=== PATIENT | female | born 2000 | race African-American/Black ===

== ENCOUNTER 2018-12-25 15:16 | Outpatient (CLI) | payer OTHER ==
--- NOTE | 2018-12-26 08:58 | Ultrasound Report ---
Reason: SOFT TISSUE MASS Procedure Date: 12/25/2018 Accession Number: [id number] / [id number] Procedure: US - Axilla CPT Code: FULL RESULT: EXAM: RIGHT UPPER EXTREMITY ULTRASOUND - LIMITED EXAM DATE: 12/25/2018 04:30 PM. CLINICAL HISTORY: Soft tissue mass. COMPARISON: None. TECHNIQUE: Real-time scanning was performed with static images obtained. FINDINGS: No mass, bulky adenopathy or collections are identified. In the palpable region in the right axilla, there are multiple morphologically normal-appearing lymph nodes identified. The largest of these nodes measures 1.9 x 0.2 x 0.8 cm. IMPRESSION: 1. No concerning mass, bulky adenopathy or collections in the right axilla. 2. Multiple palpable morphologically normal right axillary nodes measuring up to 1.9 x 0.2 x 0.8 cm noted. [facility]
== END 2018-12-25 15:17 | disposition home or self-care (01) ==
LOC: DI 15:16
PROVIDERS: ATTEND Family Medicine
DX: D49.2 Neoplasm of unspecified behavior of bone, soft tissue, and skin (principal)
CPT/HCPCS: 71046; 76882

== ENCOUNTER 2018-12-25 16:25 | Outpatient (CLI) | payer OTHER ==
--- NOTE | 2018-12-26 05:48 | XRAY Report ---
Reason: BONE SOFT TISSUE SKIN NEOPLASM UNSPEC BEHAVIOR Procedure Date: 12/25/2018 Accession Number: [id number] / [id number] Procedure: XR - Chest 2 View X-Ray CPT Code: 88778 FULL RESULT: EXAM: CHEST RADIOGRAPHY EXAM DATE: 12/25/2018 04:26 PM. CLINICAL HISTORY: BONE SOFT TISSUE SKIN NEOPLASM UNSPEC BEHAVIOR. COMPARISON: None. TECHNIQUE: 2 views. FINDINGS: Lungs/Pleura: No focal opacities evident. No pleural effusion. No pneumothorax. Normal volumes. Mediastinum: Heart and mediastinal contours are unremarkable. Other: None. IMPRESSION: Normal 2-view chest radiography. [facility]
== END 2018-12-25 16:26 | disposition home or self-care (01) ==
LOC: DI 16:25
PROVIDERS: ATTEND Family Medicine
DX: D49.2 Neoplasm of unspecified behavior of bone, soft tissue, and skin (principal)
CPT/HCPCS: 71046

== ENCOUNTER 2019-12-27 07:00 | Outpatient (CLI) | payer OTHER | END 2019-12-27 23:59 | disposition home or self-care (01) | LOC: LAB.WCP 07:00 | PROVIDERS: ATTEND Obstetrics & Gynecology | DX: O03.9 Complete or unspecified spontaneous abortion without complication (principal) | CPT/HCPCS: 36415; 84702 ==

== ENCOUNTER 2019-12-27 08:00 | Outpatient (CLI) | payer OTHER ==
[2019-12-28 19:13] LABS: TRICHOMONAS VAGINALIS DNA NEGATIVE (NEGATIVE)
== END 2019-12-27 23:59 | disposition home or self-care (01) ==
LOC: LAB.WCP 08:00
PROVIDERS: ATTEND Obstetrics & Gynecology
DX: Z11.3 Encounter for screening for infections with a predominantly sexual mode of transmission (principal); O03.9 Complete or unspecified spontaneous abortion without complication
CPT/HCPCS: 36415; 84702; 87491; 87591; 87661

== ENCOUNTER 2020-01-06 16:40 | Emergency (ER) | payer OTHER ==
[2020-01-06] MEDS ORDERED: LIDOCAINE 1%-EPI 1:100000 20 ML MDV SUBQ STA (16:56)
[2020-01-06] MEDS ORDERED: BACITRACIN ZINC OINT 1 PACKET TOP STA (17:20)
--- NOTE | 2020-01-06 17:40 | ED Physician Documentation ---
History of Present Illness - Stated complaint Stated Complaint: RT FOREARM LACS - Chief complaint Chief Complaint: Laceration - History obtained from History obtained from: Patient - History of Present Illness Timing: Last night Pain level max: 3 Pain level now: 2 - Additonal information Additional information: 19-year-old female presents to the emergency department stating that she was working on her car last night when she developed several lacerations to the right arm. She bandaged to these, but they will not stay closed. Tetanus is up-to-date. Nothing makes it better or worse. Review of Systems Constitutional: denies: Fever, Chills Nose: denies: Rhinorrhea / runny nose, Congestion Respiratory: denies: Cough GI: denies: Nausea, Vomiting : denies: Now EGA PD PAST MEDICAL HISTORY - Past Medical History Past Medical History: Yes Psych: Anxiety - Past Surgical History Past Surgical History: No - Present Medications Home Medications: Ambulatory Orders Medication Instructions Recorded Confirmed No Known Home Medications 10/18/13 11/19/13 Cyclobenzaprine [Flexeril] 10 mg PO TID PRN #20 tablet 07/16/17 Meloxicam [Mobic] 7.5 mg PO BID PRN #20 tablet 07/16/17 - Allergies Allergies/Adverse Reactions: Allergies Allergy/AdvReac Type Severity Reaction Status Date / Time No Known Drug Allergies Allergy Verified 01/06/20 16:45 - Social History Does the pt smoke?: No Smoking Status: Never smoker Does the pt drink ETOH?: Yes Does the pt have substance abuse?: No - Immunizations Immunizations are current?: No PD ED PE NORMAL - Vitals Vital signs reviewed: Yes - General General: Alert and oriented X 3, No acute distress - Derm Derm: Warm and dry, No rash - Neuro Neuro: Alert and oriented X 3 PD ED PE EXPANDED - Extremities ART UE/Hands Visual: 1 - laceration (5cm, linear, NVI) 2 - laceration (2cm, linear, NVI) Results - Vitals Vitals: Vital Signs - 24 hr 01/06/20 01/06/20 01/06/20 16:45 17:38 17:48 Temperature 36.5 C 37.1 C 37.1 C Heart Rate 88 75 76 Respiratory 14 16 Rate Blood Pressure 123/71 113/64 O2 Saturation 98 100 97 Oxygen O2 Source Room air Procedures - Laceration (location) R forearm Length in cm: 5 Wound type: Linear, Into subcut fat, Clean Anesthesia: Lidocaine 1% with epi Wound Preparation: Irrigated copiously NS, Wound explored, To the base. No: FB identified Skin layer closure: [place] Other: Patient tolerated well, No complications, Neurovascular intact, Dressing applied, Tetanus UTD Complexity: Simple R forearm 2 Length in cm: 2 Wound type: Linear, Into subcut fat, Clean Neurovascular status: Sensory intact, Motor intact Anesthesia: Lidocaine 1% with epi Wound Preparation: Irrigated copiously NS, Wound explored, To the base. No: FB identified, FB removed Skin layer closure: [place] Other: Patient tolerated well, No complications, Neurovascular intact, Dressing applied, Tetanus UTD Complexity: Simple PD MEDICAL DECISION MAKING - ED course Complexity details: considered differential, d/w patient ED course: Lacerations repaired with ina. Bacitracin applied and a bandage was placed. Tetanus is up-to-date. Warnings of infection and instructions on wound care given at bedside. Also counseled on how to minimize scarring. Patient counseled regarding signs and symptoms for which I believe and urgent re-evaluation would be necessary. Patient with good understanding of and agreement to plan and is comfortable going home at this time This document was made in part using voice recognition software. While efforts are made to proofread this document, sound alike and grammatical errors may occur. Departure - Departure Disposition: 01 Home, Self Care Clinical Impression: Forearm laceration Qualifiers: Encounter type: initial encounter Laterality: right Qualified Code(s): S51.811A - Laceration without foreign body of right forearm, initial encounter Condition: Good Instructions: ED Laceration Ext Sutr Stap Tape Follow-Up: Christianne Nix DO [Primary Care Provider] - (in 10-14 days for staple removal) Comments: Return if you worsen. Keep the wound clean. Return if you notice redness swelling or drainage from the wound. Follow-up with your doctor in approximately 10 to 14 days for staple removal. Discharge Date/Time: 01/06/20 17:45
[2020-01-06 17:49] VITALS: BP 113/64
== END 2020-01-06 17:45 | disposition home or self-care (01) ==
LOC: ED 16:40
DX: S51.811A Laceration without foreign body of right forearm, initial encounter (principal); W26.9XXA Contact with unspecified sharp object(s), initial encounter; Y93.89 Activity, other specified
CPT/HCPCS: 12002; 99281; 99282; A9270

== ENCOUNTER 2020-07-24 14:17 | Emergency (ER) | payer OTHER ==
[2020-07-24] MEDS ORDERED: LIDOCAINE 2% 50 ML MDV SUBQ STA (16:09)
[2020-07-24] MEDS ORDERED: TETANUS/DIPHTHERIA/PERTUSSIS 0.5 ML SYRINGE IM ONE (16:10)
--- NOTE | 2020-07-24 16:13 | ED Physician Documentation ---
History of Present Illness - Stated complaint Stated Complaint: FINGER PUNCTURE - Chief complaint Chief Complaint: Ext Problem - History obtained from History obtained from: Patient - History of Present Illness Timing: How many days ago (5) Pain level max: 6 Pain level now: 4 - Additonal information Additional information: R index finger pain, swelling. Worse with movement and better with rest. Unknown last Td. no known injury. Has been working on her car lately. 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 HEENT: None Psych: Anxiety Musculoskeletal: None Derm: None - Past Surgical History Past Surgical History: No - Present Medications Home Medications: Ambulatory Orders Medication Instructions Recorded Confirmed Cyclobenzaprine [Flexeril] 10 mg PO TID PRN #20 tablet 07/16/17 Meloxicam [Mobic] 7.5 mg PO BID PRN #20 tablet 07/16/17 HYDROcod/ACETAM 5/325 [Cobb 5/325] 1 - 2 ea PO Q6H PRN #14 tablet 07/24/20 clindamycin HCL [Cleocin HCl] 300 mg PO Q6H #28 capsule 07/24/20 - Allergies Allergies/Adverse Reactions: Allergies Allergy/AdvReac Type Severity Reaction Status Date / Time Sulfa (Sulfonamide Allergy Unknown Verified 07/24/20 14:22 Antibiotics) - Social History Does the pt smoke?: No Smoking Status: Never smoker Does the pt drink ETOH?: Yes Does the pt have substance abuse?: No - Immunizations Immunizations are current?: No PD ED PE NORMAL - Vitals Vital signs reviewed: Yes - General General: Alert and oriented X 3, No acute distress - HEENT HEENT: Moist mucous membranes - Derm Derm: Warm and dry - Extremities Extremities: Other (R index finger - swelling to the skin just proximal to the nail fold. NVI. no drainage. o/w normal finger and hand exam.) - Neuro Neuro: Alert and oriented X 3 Results - Vitals Vitals: Vital Signs - 24 hr 07/24/20 07/24/20 14:22 17:12 Temperature 36.5 C Heart Rate 84 71 Respiratory 16 17 Rate Blood Pressure 136/73 H 131/73 H O2 Saturation 98 99 Oxygen O2 Source Room air Procedures - Abscess I&D (location) paronychia Preparation: Alcohol, Lidocaine 2 % Incision: Incised with scalpel (blunt end under nail fold), Purulent drainage Other: Pt tolerated well, Dressing applied, Antibiotic prescribed PD MEDICAL DECISION MAKING - ED course Complexity details: considered differential, d/w patient ED course: Patient with a paronychia. No evidence of deep space infection in the hand or finger. No evidence of toxic tenosynovitis. We will place on antibiotics for home. It was drained here. Patient counseled regarding signs and symptoms for which I believe and urgent re-evaluation would be necessary. Patient with good understanding of and agreement to plan and is comfortable going home at this time This document was made in part using voice recognition software. While efforts are made to proofread this document, sound alike and grammatical errors may occur. Tdap given Departure - Departure Disposition: 01 Home, Self Care Clinical Impression: Paronychia Condition: Good Instructions: ED Fingernail Infec Follow-Up: Christianne Nix DO [Primary Care Provider] - Within 1 week (if not better) Prescriptions: clindamycin HCL [Cleocin HCl] 300 mg PO Q6H #28 capsule HYDROcod/ACETAM 5/325 [Cobb 5/325] 1 - 2 ea PO Q6H PRN #14 tablet PRN Reason: Pain Comments: Take all antibiotics until gone. Return if you worsen. Follow-up with your doctor in approximately 1 week for a wound check. Return sooner if you are not doing better. You should soak the area 2-3 times daily in warm water as well. This will help to encourage drainage. Do not drink alcohol or drive while on narcotic pain medicine. Note that many narcotic pain relievers also contain tylenol/acetaminophen. Please ensure that your total dose of acetaminophen from all sources does not exceed 3 grams (3000mg) per day. You may constipated on this medication, take a stool softener such as "Colace" twice a day while you are on it. Also recommend a [id number]-bbf-hufokbi laxative such as senna or MiraLAX any day that you do not have a bowel movement. If you received narcotic pain medication in the emergency department, do not drive or operate machinery for the next 24 hours. Discharge Date/Time: 07/24/20 17:14
[2020-07-24] MEDS ORDERED: LIDOCAINE-MPF 2% 5 ML VIAL SUBQ STA (16:16)
[2020-07-24] MEDS ORDERED: CLINDAMYCIN 150 MG CAPSULE PO STA (16:54)
[2020-07-24] MEDS ORDERED: BACITRACIN ZINC OINT 1 PACKET TOP STA (16:54)
[2020-07-24 17:13] VITALS: BP 131/73
== END 2020-07-24 17:14 | disposition home or self-care (01) ==
LOC: ED 14:17
DX: L03.011 Cellulitis of right finger (principal); Z23 Encounter for immunization
CPT/HCPCS: 10060; 90471; 90715; 99283; 99284; A9270; 26010

== ENCOUNTER 2020-09-30 | Emergency (ER) | payer OTHER | END 2020-09-30 14:12 | disposition left against medical advice (07) | DX: Z53.21 Procedure and treatment not carried out due to patient leaving prior to being seen by health care provider (principal) ==

== ENCOUNTER 2020-10-07 09:54 | Emergency (ER) | payer OTHER ==
--- NOTE | 2020-10-07 11:08 | ED Physician Documentation ---
History of Present Illness - Stated complaint Stated Complaint: BI LAT HAND INJ - Chief complaint Chief Complaint: Trauma Ext - History obtained from History obtained from: Patient - Additonal information Additional information: Patient presents emergency department chief complaint of bilateral, but mainly left, hand and wrist pain after falling on outstretched hands on a carpeted floor about 1 week ago. She states that she initially had pain, especially in the left side, but felt that it would get better on its own. However, the patient had noted persistent swelling and pain, mainly of the ulnar aspect of the left wrist and left hand dorsum over the fifth metacarpal bone. She denies any pain anywhere else in the left upper extremity. The patient also has a little pain in the right hand dorsum over the fourth and fifth MCP joint but this is much better and without swelling, and the patient can move her fingers. Review of Systems Ten Systems: 10 systems reviewed and negative Constitutional: reports: Reviewed and negative Eyes: reports: Reviewed and negative Ears: reports: Reviewed and negative Nose: reports: Reviewed and negative Throat: reports: Reviewed and negative Cardiac: reports: Reviewed and negative Respiratory: reports: Reviewed and negative GI: reports: Reviewed and negative : reports: Reviewed and negative Skin: reports: Reviewed and negative Musculoskeletal: reports: Extremity pain, Joint pain Neurologic: reports: Reviewed and negative Psychiatric: reports: Reviewed and negative Endocrine: reports: Reviewed and negative Immunocompromised: reports: Reviewed and negative PD PAST MEDICAL HISTORY - Past Medical History Past Medical History: Yes Cardiovascular: None Respiratory: None Neuro: None Endocrine/Autoimmune: None GI: None 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 : None HEENT: None Psych: Depression, Anxiety Musculoskeletal: None Derm: None - Past Surgical History Past Surgical History: No - Present Medications Home Medications: Ambulatory Orders Medication Instructions Recorded Confirmed ARIPiprazole [Abilify Mycite] 10 mg PO DAILY 10/07/20 10/07/20 Fluoxetine HCl [Prozac] 40 mg PO DAILY 10/07/20 10/07/20 - Allergies Allergies/Adverse Reactions: Allergies Allergy/AdvReac Type Severity Reaction Status Date / Time Sulfa (Sulfonamide Allergy Unknown Verified 10/07/20 09:57 Antibiotics) - Social History Does the pt smoke?: No Smoking Status: Never smoker Does the pt drink ETOH?: Yes Does the pt have substance abuse?: No - Immunizations Immunizations are current?: Yes PD ED PE NORMAL - Vitals Vital signs reviewed: Yes - General General: Alert and oriented X 3, No acute distress - HEENT HEENT: Atraumatic, PERRL, EOMI, Moist mucous membranes - Neck Neck: Supple, no meningeal sign - Cardiac Cardiac: Strong equal pulses - Respiratory Respiratory: No respiratory distress - Derm Derm: Normal color, Warm and dry, No rash - Extremities Extremities: No deformity, Other (Mild edema left wrist and ulnar aspect of left hand. Tenderness over same area. Limited range of motion secondary to pain.) - Neuro Neuro: Alert and oriented X 3 - Psych Psych: Normal mood, Normal affect Results - Vitals Vitals: Oxygen O2 Source Room air - Rads (name of study) L wrist XR Radiology: Final report received, EMP read indepedently, See rad report (neg) L hand XR Radiology: Final report received, EMP read indepedently, See rad report (neg) PD MEDICAL DECISION MAKING - ED course Complexity details: reviewed results, re-evaluated patient, considered differential, d/w patient ED course: The patient was sent for x-rays of her left wrist and hand, which were unremarkable. She was placed in a Velcro splint of her left wrist. We have discussed home management of the symptoms, as well as the usual indications for return. Departure - Departure Disposition: 01 Home, Self Care Clinical Impression: Left wrist sprain Qualifiers: Encounter type: initial encounter Qualified Code(s): S63.502A - Unspecified sprain of left wrist, initial encounter Condition: Stable Instructions: ED Sprain Wrist Comments: Your x-rays look great. There is no evidence of a broken bone. You have most likely sprained the wrist and hand. This will heal on its own over time but can cause some pain and swelling in the meantime. You may use the Velcro wrist splint to help with discomfort in the meantime. Please also elevate and ice the wrist whenever you are able. Icing should be done for 20 to 30 minutes at a time, and then the ice pack should be removed to avoid tissue damage. You may use ibuprofen and Tylenol as needed for pain. Ibuprofen can be taken 600 mg every 6 hours or 800 mg every 8 hours, as needed. You may take Tylenol at the same time, with the adult dose being 650 mg every 4 hours. You are free to use the splint at your discretion, and may leave off using it whenever you are feeling better. Discharge Date/Time: 10/07/20 12:35
--- NOTE | 2020-10-07 11:51 | XRAY Report ---
PROCEDURE: Wrist 3 View LT INDICATIONS: FOOSH, pain, swelling TECHNIQUE: views of the wrist were acquired. COMPARISON: None FINDINGS: Bones: No fractures or dislocations. No suspicious bony lesions. Soft tissues: No suspicious soft tissue calcifications. IMPRESSION: No fracture. No osseous lesion. If there are persistent symptoms or continued clinical concern for pa thology, then repeat plain film radiographs (7-10 days) or advanced imaging (CT, MR, bone scan) shoul d be considered for further evaluation. Reviewed by: Kenya Giraldo MD, PhD on 10/07/2020 11:49 AM [facility] Approved by: Kenya Giraldo MD, PhD on 10/07/2020 11:49 AM [facility] Station ID: [id number]
--- NOTE | 2020-10-07 11:54 | XRAY Report ---
PROCEDURE: Hand 3 View LT INDICATIONS: FOOSH, pain, swelling TECHNIQUE: 3 views of the hand acquired. COMPARISON: Concurrent study of the wrist. FINDINGS: Bones: No fractures or dislocations. No suspicious bony lesions. Soft tissues: No suspicious soft tissue calcifications. IMPRESSION: 1. No fracture or dislocation. Reviewed by: Fazal Martino MD on 10/07/2020 11:52 AM [facility] Approved by: Fazal Martino MD on 10/07/2020 11:52 AM [facility] Station ID: [id number]
[2020-10-07 12:35] VITALS: BP 108/63
== END 2020-10-07 12:35 | disposition home or self-care (01) ==
LOC: ED 09:54
DX: S63.502A Unspecified sprain of left wrist, initial encounter (principal); W18.09XA Striking against other object with subsequent fall, initial encounter; Y92.009 Unspecified place in unspecified non-institutional (private) residence as the place of occurrence of the external cause
CPT/HCPCS: 99284

== ENCOUNTER 2020-12-16 18:52 | Emergency (ER) | payer OTHER ==
[2020-12-16] MEDS ORDERED: LIDOCAINE MPF 2%-EPI 1:200000 20 ML VIAL SUBQ ONE (19:13)
[2020-12-16] MEDS ORDERED: IBUPROFEN 600 MG TABLET PO STA (19:13)
--- NOTE | 2020-12-16 19:46 | ED Physician Documentation ---
PD HPI UPPER EXT INJURY - Stated complaint Stated Complaint: RT ARM LAC - Chief complaint Chief Complaint: Laceration - History obtained from History obtained from: Patient - History of Present Illness Location: Right, Forearm Type of injury: Laceration (her car window broke and she was taking out the broken glass and some fell and cut her forearm. No numbness nor weakness.) Where injury occurred: Home Timing - onset: How many hours ago (1), Today Timing - details: Abrupt onset, Still present (bled initially but stopped with direct pressure. Laceration still open. 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 HEENT: None Psych: Depression, Anxiety Musculoskeletal: None Derm: None - Past Surgical History Past Surgical History: No - Present Medications Home Medications: Ambulatory Orders Medication Instructions Recorded Confirmed ARIPiprazole [Abilify Mycite] 10 mg PO DAILY 10/07/20 12/16/20 Fluoxetine HCl [Prozac] 40 mg PO DAILY 10/07/20 12/16/20 - Allergies Allergies/Adverse Reactions: Allergies Allergy/AdvReac Type Severity Reaction Status Date / Time Sulfa (Sulfonamide Allergy Unknown Verified 12/16/20 18:56 Antibiotics) - Social History Does the pt smoke?: No Smoking Status: Never smoker Does the pt drink ETOH?: Yes Does the pt have substance abuse?: No - Immunizations Immunizations are current?: Yes PD ED PE NORMAL - Vitals Vital signs reviewed: Yes - General General: Alert and oriented X 3, No acute distress, Well developed/nourished - Derm Derm: Normal color, Warm and dry - Extremities Extremities: No deformity, Other (laceration mid volar forearm about 3 cm long with edges gapped apart. No FB. Goes to fatty layer, but not deeper structures. Minimal bleeding now. ) - Neuro Neuro: Alert and oriented X 3, No motor deficit, No sensory deficit, Other (good pulses and cap refill distally.) Results - Vitals Vitals: Vital Signs - 24 hr 12/16/20 12/16/20 18:57 20:03 Temperature 37 C 36.8 C Heart Rate 106 H 103 H Respiratory 18 16 Rate Blood Pressure 170/106 H 142/86 H O2 Saturation 98 100 Oxygen O2 Source Room air Procedures - Laceration (location) right forearm volar Length in cm: 3 Wound type: Linear, Into subcut fat, Clean Neurovascular status: Sensory intact, Motor intact, Vascular intact Tendon involvement: Tendon intact Anesthesia: Lidocaine 1% with epi Wound preparation: Irrigated copiously NS, Wound explored, To the base. No: FB identified Skin layer closure: Nylon, Running, Size #-0 - enter number (4), Sutures - enter # (11) Other: Patient tolerated well, No complications, Neurovascular intact, Dressing applied, Tetanus UTD PD MEDICAL DECISION MAKING - ED course Complexity details: considered differential, d/w patient Departure - Departure Disposition: 01 Home, Self Care Clinical Impression: Forearm laceration Qualifiers: Encounter type: initial encounter Laterality: right Qualified Code(s): S51.811A - Laceration without foreign body of right forearm, initial encounter Condition: Stable Record reviewed to determine appropriate education?: Yes Instructions: ED Laceration Ext Sutr Stap Tape Follow-Up: Christianne Nix DO [Primary Care Provider] - Comments: Suture removal in 8-10 days. Discharge Date/Time: 12/16/20 20:05
[2020-12-16 20:05] VITALS: BP 142/86
== END 2020-12-16 20:05 | disposition home or self-care (01) ==
LOC: ED 18:52
DX: S51.811A Laceration without foreign body of right forearm, initial encounter (principal); W25.XXXA Contact with sharp glass, initial encounter; Y92.009 Unspecified place in unspecified non-institutional (private) residence as the place of occurrence of the external cause
CPT/HCPCS: 12002; 99282; A9270

== ENCOUNTER 2021-04-23 08:00 | Outpatient (CLI) | payer OTHER ==
[2021-04-23 11:53] LABS: HCG,QUALITATIVE BLOOD NEGATIVE
== END 2021-04-23 23:59 | disposition home or self-care (01) ==
LOC: LAB.WCP 08:00
PROVIDERS: ATTEND Family Medicine
DX: N91.2 Amenorrhea, unspecified (principal)
CPT/HCPCS: 36415; 84703

== ENCOUNTER 2021-05-13 10:58 | Emergency (ER) | payer OTHER ==
[2021-05-13 11:24] LABS: BASOPHILS % (AUTO) 0.7 %; EOSINOPHILS # (AUTO) 0.2 10^3/uL (0.0-0.7); EOSINOPHILS % (AUTO) 5.2 %; HCT - HEMATOCRIT 39.4 % (37.0-47.0); HGB - HEMOGLOBIN 13.1 g/dL (12.0-16.0); LYMPHOCYTES # (AUTO) 1.8 10^3/uL (1.5-3.5); LYMPHOCYTES % (AUTO) 45.3 %; MEAN CORPUSCULAR HEMOGLOBIN 30.2 pg (27.0-31.0); MEAN CORPUSCULAR HGB CONC 33.2 g/dL (32.0-36.0); MEAN CORPUSCULAR VOLUME 90.8 fL (81.0-99.0); MEAN PLATELET VOLUME 9.9 fL (7.9-10.8); MONOCYTES # (AUTO) 0.3 10^3/uL (0.0-1.0); MONOCYTES % (AUTO) 7.7 %; NEUTROPHILS # (AUTO) 1.7 10^3/uL (1.5-6.6); NEUTROPHILS % (AUTO) 41.1 %; PLT - PLATELET COUNT 264 10^3/uL (130-450); RED BLOOD COUNT 4.34 10^6/uL (4.20-5.40)
[2021-05-13 11:28] LABS: BILIRUBIN,URINE NEGATIVE (NEGATIVE); GLUCOSE, URINE (UA) NEGATIVE (NEGATIVE); KETONES,URINE (UA) NEGATIVE (NEGATIVE); LEUKOCYTE ESTERASE, URINE TRACE (NEGATIVE); NITRITE,URINE NEGATIVE (NEGATIVE); OCCULT BLOOD,URINE NEGATIVE (NEGATIVE); PROTEIN,URINE NEGATIVE (NEGATIVE); UROBILINOGEN,URINE 0.2 (NORMAL) E.U./dL (NORMAL)
[2021-05-13 11:34] LABS: CLARITY,URINE CLEAR (CLEAR); HCG UR QUAL NEGATIVE
[2021-05-13 11:35] LABS: BACTERIA,URINE Rare /HPF (None Seen); RBC,URINE None Seen /HPF (0-5); SQUAMOUS EPITHELIAL CELL,UR MOD Squamous (<= Few)
[2021-05-13] MEDS ORDERED: ONDANSETRON 4 MG/2 ML VIAL IVP STA (11:50)
[2021-05-13] MEDS ORDERED: SODIUM CHLORIDE 0.9% 1,000 ML IV STA (11:50)
--- NOTE | 2021-05-13 11:52 | ED Physician Documentation ---
History of Present Illness - Stated complaint Stated Complaint: ABN PX,VOMITTING - Chief complaint Chief Complaint: Abd Pain - Additonal information Additional information: 20-year-old female presents the emergency department for evaluation of 3 weeks nausea vomiting and diarrhea. Reports last menstrual period as April 02, 2021. She assumed that the vomiting and diarrhea was secondary to being though her home tests are negative and she is negative here in the ER. She is attempting to get and is requesting a serum test. She reports that she has typically 2-4 watery loose stools a day. No melena or hematochezia. She is persistently nauseated and vomits 2-3 times a day on average though not always. Nausea is not worse in the morning or in the evening with meals. She is having some left lower abdominal discomfort. There have been no fevers dysuria urgency or frequency. Denies any pertinent past surgical history. Takes no prescribed medications. She does smoke cannabis daily but reports that it improves the nausea and not worsens it. Denies tobacco or alcohol use. She is not vaccinated for COVID-19 Review of Systems Constitutional: denies: Fever, Chills Eyes: reports: Reviewed and negative Ears: reports: Reviewed and negative Nose: reports: Reviewed and negative Throat: reports: Reviewed and negative Cardiac: reports: Reviewed and negative Respiratory: reports: Reviewed and negative GI: reports: Abdominal Pain, Nausea, Vomiting, Diarrhea. 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 : None HEENT: None Psych: Depression, Anxiety Musculoskeletal: None Derm: None - Past Surgical History Past Surgical History: No - Present Medications Home Medications: Ambulatory Orders Medication Instructions Recorded Confirmed Duloxetine HCl [Cymbalta] 60 mg PO DAILY 05/13/21 05/13/21 Ondansetron Odt [Zofran] 4 mg TL Q6H PRN #20 tablet 05/13/21 Trazodone HCl 100 mg PO HS 05/13/21 05/13/21 - Allergies Allergies/Adverse Reactions: Allergies Allergy/AdvReac Type Severity Reaction Status Date / Time Sulfa (Sulfonamide Allergy Unknown Verified 05/13/21 11:06 Antibiotics) - Social History Does the pt smoke?: No Smoking Status: Never smoker Does the pt drink ETOH?: Yes Does the pt have substance abuse?: No - Immunizations Immunizations are current?: Yes PD ED PE NORMAL - General General: Alert and oriented X 3, No acute distress - HEENT HEENT: PERRL - Neck Neck: Supple, no meningeal sign - Cardiac Cardiac: RRR, No murmur - Respiratory Respiratory: Clear bilaterally - Abdomen Abdomen: Normal bowel sounds, Soft, Non distended. No: Non tender (Mild tenderness left lower quadrant without guarding or rebound. Negative Farmer's and negative McBurney's.) - Back Back: No CVA TTP - Derm Derm: Normal color, Warm and dry, No rash - Neuro Neuro: Alert and oriented X 3 Results - Vitals Vitals: Vital Signs - 24 hr 05/13/21 05/13/21 11:02 13:06 Temperature 36.2 C L Heart Rate 78 73 Respiratory 16 22 Rate Blood Pressure 122/75 145/108 H O2 Saturation 98 99 Oxygen O2 Source Room air - Labs Labs: Laboratory Tests 05/13/21 05/13/21 05/13/21 11:15 11:17 11:18 WBC 4.0 L RBC 4.34 Hgb 13.1 Hct 39.4 MCV 90.8 MCH 30.2 MCHC 33.2 RDW 13.0 Plt Count 264 MPV 9.9 Neut # (Auto) 1.7 Lymph # (Auto) 1.8 [place] # (Auto) 0.3 Eos # (Auto) 0.2 Baso # (Auto) 0.0 Absolute Nucleated RBC 0.00 Nucleated RBC % 0.0 Sodium Potassium Chloride Carbon Dioxide Anion Gap BUN Creatinine Estimated GFR (MDRD) Glucose Calcium Total Bilirubin AST ALT Alkaline Phosphatase Total Protein Albumin Globulin Albumin/Globulin Ratio Lipase HCG, Quant Urine Color YELLOW Urine Clarity CLEAR Urine pH 6.0 Ur Specific [place] 1.025 Urine Protein NEGATIVE Urine Glucose (UA) NEGATIVE Urine Ketones NEGATIVE Urine Occult Blood NEGATIVE Urine Nitrite NEGATIVE Urine Bilirubin NEGATIVE Urine Urobilinogen 0.2 (NORMAL) Ur Leukocyte Esterase TRACE H Urine RBC None Seen Urine WBC 6-10 H Ur Squamous Epith Cells MOD Squamous H Urine Bacteria Rare Ur Microscopic Review INDICATED Urine Culture Comments NOT INDICATED Urine HCG, Qual NEGATIVE NEGATIVE 05/13/21 05/13/21 11:18 11:18 WBC RBC Hgb Hct MCV MCH MCHC RDW Plt Count MPV Neut # (Auto) Lymph # (Auto) [place] # (Auto) Eos # (Auto) Baso # (Auto) Absolute Nucleated RBC Nucleated RBC % Sodium 141 Potassium 4.4 Chloride 106 Carbon Dioxide 25 Anion Gap 10.0 BUN 17 Creatinine 0.8 Estimated GFR (MDRD) 109 Glucose 94 Calcium 9.2 Total Bilirubin 1.2 H AST 23 ALT 26 Alkaline Phosphatase 38 L Total Protein 7.7 Albumin 4.5 Globulin 3.2 Albumin/Globulin Ratio 1.4 Lipase 38 HCG, Quant < 0.60 Urine Color Urine Clarity Urine pH Ur Specific [place] Urine Protein Urine Glucose (UA) Urine Ketones Urine Occult Blood Urine Nitrite Urine Bilirubin Urine Urobilinogen Ur Leukocyte Esterase Urine RBC Urine WBC Ur Squamous Epith Cells Urine Bacteria Ur Microscopic Review Urine Culture Comments Urine HCG, Qual - Rads (name of study) abd pelvis Radiology: Final report received (No acute intra-abdominal process noted.) PD MEDICAL DECISION MAKING - ED course Complexity details: reviewed results, d/w patient, d/w family ED course: 20-year-old female presents emergency department for evaluation of 3 to 4 weeks persistent nausea vomiting and diarrhea. She thought that she was however urine and serum hCG testing is negative. Given 3 weeks of diarrhea I ordered stool testing but patient was unable to produce a sample here in the emergency department. Screening labs were otherwise unremarkable. CT of the abdomen did not show any worrisome abnormalities. I encourage patient to continue close follow-up with primary care doctor. Given persistence in symptoms she would benefit likely from an EGD or colonoscopy. I will prescribe a limited amount of Zofran to help with the nausea. Emergent and worrisome return precautions were discussed. Departure - Departure Disposition: 01 Home, Self Care Clinical Impression: Nausea vomiting and diarrhea Condition: Stable Record reviewed to determine appropriate education?: Yes Instructions: ED Abdominal Pain Unkn Cause Follow-Up: Christianne Nix DO [Primary Care Provider] - Prescriptions: Ondansetron Odt [Zofran] 4 mg TL Q6H PRN #20 tablet PRN Reason: Nausea / Vomiting Comments: You are seen in the ER today for vomiting and diarrhea for about the last 3 to 4 weeks. Your screening labs are all essentially normal. You are not . Your serum blood testing shows that you are not . The CT of your abdomen did not show any worrisome findings. To help treat the nausea and vomiting I have prescribed some Zofran. To treat the diarrhea I would like you to start taking lactobacillus or eat a couple yogurt every day. This will help reestablish healthy bacteria in the intestines and reduce diarrhea. Would like you to schedule close follow-up with your primary care doctor. Persistent vomiting and diarrhea typically should be referred to a air bag stripper to ensure that there is no structural problems causing the persistent symptoms. If any point you develop fevers, have uncontrolled vomiting despite the Zofran, have black or bloody stools then please return immediately to the ER for a second look.
[2021-05-13 11:56] LABS: ALBUMIN 4.5 g/dL (3.2-5.5); ALBUMIN/GLOBULIN RATIO 1.4 (1.0-2.2); BILIRUBIN,TOTAL 1.2 mg/dL (0.2-1.0); CALCIUM 9.2 mg/dL (8.5-10.3); CREATININE 0.8 mg/dL (0.4-1.0); POTASSIUM 4.4 mmol/L (3.5-5.0); TOTAL PROTEIN 7.7 g/dL (6.7-8.2)
[2021-05-13 12:15] LABS: HCG UR QUAL NEGATIVE
[2021-05-13] MEDS ORDERED: IOPAMIDOL-300 100 ML VIAL ONE (13:00)
--- NOTE | 2021-05-13 13:09 | CT Report ---
PROCEDURE: Abdomen/Pelvis W INDICATIONS: n/v/d X 3 weeks CONTRAST: IV CONTRAST: Isovue 300 ml: 100 PO CONTRAST: *NO PO CONTRAST TECHNIQUE: After the administration of contrast, 5 mm thick sections acquired from the diaphragms to the sym physis. 5 mm thick coronal and sagittal reformats were acquired. For radiation dose reduction, the following was used: automated exposure control, adjustment of mA and/or kV according to patient size . COMPARISON: None. FINDINGS: Image quality: Excellent. ABDOMEN: Lung bases: Lung bases are clear. Heart size is normal. Solid organs: Liver and spleen are normal in size and enhancement. Gallbladder unremarkable Biliar y system is non dilated. Pancreas enhances normally. No adrenal nodules. Kidneys demonstrate shaw l size and enhancement, without hydronephrosis. Peritoneum and bowel: Bowel loops demonstrate normal wall thickness and caliber. No free fluid or a ir. Normal appendix identified. Nodes and vessels: No retroperitoneal or mesenteric adenopathy by size criteria. Aorta and inferior vena cava are normal in size. Miscellaneous: No ventral hernias. PELVIS: Genitourinary: Bladder wall thickness is normal. Miscellaneous: No inguinal hernias or adenopathy. Bones: No suspicious bony lesions. No vertebral body compression fractures. IMPRESSION: Unremarkable CT abdomen and pelvis. No evidence of renal calculi, obstructive uropathy or hydronephrosis. Reviewed by: Tee Cho MD on 05/13/2021 12:08 PM EDDA Approved by: Tee Cho MD on 05/13/2021 12:08 PM AKEDDIE Station ID: [id number]
[2021-05-13 13:10] VITALS: BP 145/108
[2021-05-13] MEDS ORDERED: IOPAMIDOL-300 100 ML VIAL IVP ONE (19:07)
== END 2021-05-13 14:34 | disposition home or self-care (01) ==
LOC: ED 10:58
DX: R11.2 Nausea with vomiting, unspecified (principal); R19.7 Diarrhea, unspecified; Z20.822 Contact with and (suspected) exposure to COVID-19
CPT/HCPCS: 36415; 74177; 80053; 81001; 81025; 83690; 84702; 85025; 87635; 96374; 99284; Q9967; 81003; 87086

== ENCOUNTER 2021-07-15 08:00 | Outpatient (CLI) | payer OTHER ==
[2021-07-15 21:07] LABS: CHLAMYDIA TRACHOMATIS DNA NEGATIVE (NEGATIVE); NEISSERIA GONORRHOEAE DNA NEGATIVE (NEGATIVE); TRICHOMONAS VAGINALIS DNA NEGATIVE (NEGATIVE)
[2021-07-17 12:06] LABS: HIV AG/AB 4TH GEN NON-REACTIVE (NON-REACTIVE)
== END 2021-07-15 23:59 | disposition home or self-care (01) ==
LOC: LAB.WCP 08:00
PROVIDERS: ATTEND Family Medicine
DX: Z11.3 Encounter for screening for infections with a predominantly sexual mode of transmission (principal)
CPT/HCPCS: 86592; 87389; 87491; 87591; 87661

== ENCOUNTER 2021-08-12 21:22 | Emergency (ER) | payer OTHER ==
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
[2021-08-12] MEDS ORDERED: oxyCODONE 5 MG TABLET PO STA (21:56)
--- NOTE | 2021-08-12 22:27 | XRAY Report ---
PROCEDURE: Forearm BILAT INDICATIONS: BL forearm swelling s/p fall TECHNIQUE: 2 views of the forearm were acquired. COMPARISON: None. FINDINGS: Bones: No fractures or dislocations. No periosteal reaction. No suspicious bony lesions. Soft tissues: Soft tissue swelling at the dorsal aspect of the forearms bilaterally, right greater th an left. No suspicious soft tissue calcifications or masses. Radiopaque foreign body. IMPRESSION: No acute osseous abnormality. Forearm soft tissue swelling bilaterally. Reviewed by: Edgardo Trevino MD on 08/12/2021 10:25 PM PST Approved by: Edgardo Trevino MD on 08/12/2021 10:25 PM PST Station ID: [id number]
[2021-08-12 22:51] VITALS: BP 138/88
== END 2021-08-12 22:50 | disposition home or self-care (01) ==
LOC: ED 21:22
DX: R22.33 Localized swelling, mass and lump, upper limb, bilateral (principal); M79.632 Pain in left forearm; M79.631 Pain in right forearm; W19.XXXA Unspecified fall, initial encounter
CPT/HCPCS: 73090; 99282; 99283; A9270

== ENCOUNTER 2021-09-09 16:22 | Emergency (ER) | payer MEDICARE, OTHER ==
[2021-09-09 16:31] VITALS: BP 169/99
--- NOTE | 2021-09-09 18:54 | ED Physician Documentation ---
History of Present Illness - Stated complaint Stated Complaint: LUMPS UNDER ARM/PX - Chief complaint Chief Complaint: Wound - History obtained from History obtained from: Patient - History of Present Illness Timing: Today Pain level max: 0 Pain level now: 0 - Additonal information Additional information: Patient is a 21-year-old female who presents to the emergency department stating that she has felt lumps on her chest and in her axilla over the past several weeks. She states she ran out of her Risperdal about a month ago. She states that there is a prescription but she does not know where it is. She denies any suicidal or homicidal ideation. No fevers. No chills. Nothing makes it better or worse. No drainage. 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 : None HEENT: None Psych: Depression, Anxiety Musculoskeletal: None Derm: None - Past Surgical History Past Surgical History: No - Present Medications Home Medications: Ambulatory Orders Medication Instructions Recorded Confirmed Duloxetine HCl [Cymbalta] 60 mg PO DAILY 05/13/21 08/12/21 Ondansetron Odt [Zofran] 4 mg TL Q6H PRN #20 tablet 05/13/21 Trazodone HCl 100 mg PO HS 05/13/21 08/12/21 risperiDONE [Risperdal] 2 mg PO DAILY 08/12/21 08/12/21 - Allergies Allergies/Adverse Reactions: Allergies Allergy/AdvReac Type Severity Reaction Status Date / Time Sulfa (Sulfonamide Allergy Unknown Verified 09/09/21 16:27 Antibiotics) - Social History Does the pt smoke?: No Smoking Status: Never smoker Does the pt drink ETOH?: Yes Does the pt have substance abuse?: No - Immunizations Immunizations are current?: Yes PD ED PE NORMAL - Vitals Vital signs reviewed: Yes - General General: Alert and oriented X 3 - HEENT HEENT: PERRL, Moist mucous membranes - Neck Neck: Supple, no meningeal sign, No adenopathy (No palpable lymphadenopathy in the axilla or across the chest wall. No cervical lymphadenopathy.) - Cardiac Cardiac: RRR, Strong equal pulses - Respiratory Respiratory: No respiratory distress, Clear bilaterally - Abdomen Abdomen: Soft, Non tender, Non distended - Derm Derm: Warm and dry - Neuro Neuro: Alert and oriented X 3 - Psych Psych: Normal mood, Normal affect Results - Vitals Vitals: Vital Signs - 24 hr 09/09/21 16:27 Temperature 37.0 C Heart Rate 110 H Respiratory 20 Rate Blood Pressure 169/99 H O2 Saturation 99 Oxygen O2 Source Room air PD MEDICAL DECISION MAKING - ED course Complexity details: considered differential, d/w patient ED course: Patient is palpating areas where the lymph nodes would be. I do not feel any significant lymphadenopathy in this patient. There are no abscesses. There are no signs of infection. Recommend that she restart her Risperdal. It does appear that her prescriptions are sent to [facility] in [place]. She will check with them tomorrow regarding her medication. She does not want a new prescription or a dose tonight. Patient counseled regarding signs and symptoms for which I believe and urgent re-evaluation would be necessary. Patient with good understanding of and agreement to plan and is comfortable going home at this time This document was made in part using voice recognition software. While efforts are made to proofread this document, sound alike and grammatical errors may occur. Departure - Departure Disposition: 01 Home, Self Care Clinical Impression: Has run out of medications, Lymphadenopathy Condition: Good Instructions: Lymphadenopathy Follow-Up: Christianne Nix DO [Primary Care Provider] - Within 1 week Comments: Your prescriptions have been sent recently to [facility]. You can follow-up with [facility] in [place] to discuss where your medications are. You appear to have medication waiting for you. Please follow-up with your doctor in 1 week for repeat evaluation. You have declined blood work here today. Return if you worsen Discharge Date/Time: 09/09/21 19:08
== END 2021-09-09 19:08 | disposition home or self-care (01) ==
LOC: ED 16:22
DX: F41.9 Anxiety disorder, unspecified (principal); T43.596A Underdosing of other antipsychotics and neuroleptics, initial encounter; Z91.138 Patient's unintentional underdosing of medication regimen for other reason; N64.89 Other specified disorders of breast; R59.0 Localized enlarged lymph nodes; I10 Essential (primary) hypertension
CPT/HCPCS: 99281

== ENCOUNTER 2021-09-09 23:13 | Emergency (ER) | payer MEDICARE ==
[2021-09-10] MEDS ORDERED: risperiDONE 1 MG TABLET PO STA (00:39)
--- NOTE | 2021-09-10 01:54 | ED Physician Documentation ---
History of Present Illness - Stated complaint Stated Complaint: DIFF BREATHING - Chief complaint Chief Complaint: Resp - History obtained from History obtained from: Patient - History of Present Illness Timing: How many weeks ago (several) - Additonal information Additional information: 21-year-old female off of her medications comes to the emergency department with acute anxiety feeling that she is having difficulty breathing. She is anxious about her breasts. She feels a nipples have changed in their character with the skin surrounding them. She is vague about the this history. She feels that she has a lymph node in the right axilla that is painful. She is worried about breast cancer. She has found some tiny dots in her skin that pop up here and there. She admits to using cocaine on her birthday and indicates that she did not want blood drawn in the emergency department earlier in the day because of this. She usually takes risperdal 2 mg nightly. She has not been taking this medication. Review of Systems Constitutional: denies: Fever Ears: denies: Ear pain Nose: denies: Congestion Throat: denies: Sore throat Cardiac: denies: Chest pain / pressure, Palpitations, Pedal edema, Calf pain Respiratory: reports: Dyspnea. 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 : None HEENT: None Psych: Depression, Anxiety, Bipolar disorder Musculoskeletal: None Derm: None - Past Surgical History Past Surgical History: No - Present Medications Home Medications: Ambulatory Orders Medication Instructions Recorded Confirmed Duloxetine HCl [Cymbalta] 60 mg PO DAILY 05/13/21 09/09/21 Trazodone HCl 100 mg PO HS 05/13/21 09/09/21 risperiDONE [Risperdal] 2 mg PO DAILY 08/12/21 09/09/21 risperiDONE [Risperdal] 2 mg PO DAILY #20 tablet 09/10/21 - Allergies Allergies/Adverse Reactions: Allergies Allergy/AdvReac Type Severity Reaction Status Date / Time Sulfa (Sulfonamide Allergy Unknown Verified 09/09/21 23:16 Antibiotics) - Social History Does the pt smoke?: No Smoking Status: Never smoker Does the pt drink ETOH?: Yes Does the pt have substance abuse?: Yes Substance Use and Type: Marijuana, Cocaine/Crack - Immunizations Immunizations are current?: Yes PD ED PE NORMAL - Vitals Vital signs reviewed: Yes (tachy and tachypneic and hypertensive) - General General: Alert and oriented X 3, Well developed/nourished, Other (acutely anxious 21 y/o female with akesthesia) - HEENT HEENT: Atraumatic, PERRL, EOMI - Neck Neck: Supple, no meningeal sign, No bony TTP - Cardiac Cardiac: No murmur, Other (tachy to 110) - Respiratory Respiratory: Clear bilaterally, Other (tachyneic at rest. Breast exam is unremarkable. I am not able to differentiate an abnormality. ) - Abdomen Abdomen: Soft, Non tender - Back Back: No CVA TTP, No spinal TTP - Derm Derm: Normal color, Warm and dry, No rash - Extremities Extremities: No deformity, No edema - Neuro Neuro: Alert and oriented X 3, warp bleaching vat tender 2-12 intact, No motor deficit, No sensory deficit, Other (speech is pressured) Eye Opening: Spontaneous Motor: Obeys Commands Verbal: Oriented GCS Score: 15 - Psych Psych: Normal affect, Other (mood is anxious ) Results - Vitals Vitals: Vital Signs - 24 hr 09/09/21 09/09/21 09/10/21 23:17 23:31 00:08 Temperature 36.6 C Heart Rate 123 H 92 90 Respiratory 28 H 20 18 Rate Blood Pressure 188/123 H 155/122 H 149/105 H O2 Saturation 100 100 98 09/10/21 09/10/21 01:00 02:03 Temperature Heart Rate 94 100 Respiratory 20 17 Rate Blood Pressure 141/100 H 129/78 O2 Saturation 100 97 Oxygen O2 Source Room air PD MEDICAL DECISION MAKING - ED course Complexity details: reviewed old records, re-evaluated patient, considered differential, d/w patient ED course: 21 y/o female arrives hyperventilating with obvious distress about her breasts. She is off of her medication and it is difficult to get history from her. She is administered Respridal 2mg PO and has marked improvement. Following that I am able to examine the patient and I do not find abnormality. She indicates that she feels her nipples have changed but they don't seem as bad as they were. I have refilled her script for rispredone and referred her to surgery for breast exam with thought of Pagets disease for which I personally have little experience. Departure - Departure Disposition: 01 Home, Self Care Clinical Impression: Acute anxiety, Breast complaint Condition: Stable Instructions: Self Exam Breast, ED Stress React, ED Panic Attack Follow-Up: Christianne Nix DO [Primary Care Provider] [facility] Prescriptions: risperiDONE [Risperdal] 2 mg PO DAILY #20 tablet Discharge Date/Time: 09/10/21 02:10
[2021-09-10 02:03] VITALS: BP 129/78
== END 2021-09-10 02:10 | disposition home or self-care (01) ==
LOC: ED 23:13
DX: F41.9 Anxiety disorder, unspecified (principal); T43.596A Underdosing of other antipsychotics and neuroleptics, initial encounter; Z91.138 Patient's unintentional underdosing of medication regimen for other reason; N64.89 Other specified disorders of breast; R59.0 Localized enlarged lymph nodes; I10 Essential (primary) hypertension
CPT/HCPCS: 99281; 99282; 99283; A9270

== ENCOUNTER 2021-09-13 13:35 | Emergency (ER) | payer MEDICARE ==
--- NOTE | 2021-09-13 14:05 | ED Physician Documentation ---
History of Present Illness - Stated complaint Stated Complaint: BACK/CHEST PX - Chief complaint Chief Complaint: General - History obtained from History obtained from: Patient - Additonal information Additional information: 21-year-old woman with history of psychiatric issues presents with a complaint of a 2-month history of worsening painful lump in the right axilla associated with shortness of breath. She notes a 20 pound weight loss with night sweats and poor sleep despite taking trazodone. She admits to using cocaine on her birthday, 5 days ago but states she has not used any since. 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 : None HEENT: None Psych: Depression, Anxiety, Bipolar disorder Musculoskeletal: None Derm: None - Past Surgical History Past Surgical History: No - Present Medications Home Medications: Ambulatory Orders Medication Instructions Recorded Confirmed Duloxetine HCl [Cymbalta] 60 mg PO DAILY 05/13/21 09/13/21 Trazodone HCl 100 mg PO HS 05/13/21 09/13/21 risperiDONE [Risperdal] 2 mg PO DAILY 08/12/21 09/13/21 - Allergies Allergies/Adverse Reactions: Allergies Allergy/AdvReac Type Severity Reaction Status Date / Time Sulfa (Sulfonamide Allergy Unknown Verified 09/13/21 13:52 Antibiotics) - Social History Does the pt smoke?: No Smoking Status: Never smoker Does the pt drink ETOH?: Yes Does the pt have substance abuse?: Yes - Immunizations Immunizations are current?: Yes PD ED PE NORMAL - Vitals Vital signs reviewed: Yes - General General: Alert and oriented X 3, Other (Odd affect) - HEENT HEENT: PERRL, EOMI - Neck Neck: Supple, no meningeal sign, No bony TTP - Cardiac Cardiac: RRR, No murmur - Respiratory Respiratory: No respiratory distress, Clear bilaterally - Abdomen Abdomen: Non tender - Extremities Extremities: Other (Right axillary exam done with Antonina, female RN present and chaperoning, I do not appreciate any mass or adenopathy.) Results - Vitals Vitals: Vital Signs - 24 hr 09/13/21 09/13/21 13:48 13:55 Temperature 36.2 C L Heart Rate 111 H 94 Respiratory 20 Rate Blood Pressure 126/102 H O2 Saturation 97 Oxygen O2 Source Room air - Labs Labs: Laboratory Tests 09/13/21 09/13/21 09/13/21 14:07 14:09 14:09 WBC 3.7 L RBC 4.26 Hgb 13.1 Hct 40.0 MCV 93.9 MCH 30.8 MCHC 32.8 RDW 12.8 Plt Count 258 MPV 9.9 Neut # (Auto) 1.6 Lymph # (Auto) 1.6 Storey # (Auto) 0.4 Eos # (Auto) 0.1 Baso # (Auto) 0.1 Absolute Nucleated RBC 0.00 Nucleated RBC % 0.0 Sodium 134 L Potassium 4.5 Chloride 99 L Carbon Dioxide 29 Anion Gap 6.0 BUN 8 Creatinine 0.9 Estimated GFR (MDRD) 94 Glucose 85 Calcium 9.1 Total Bilirubin 1.0 AST 19 ALT 20 Alkaline Phosphatase 31 L Total Protein 7.5 Albumin 4.2 Globulin 3.3 Albumin/Globulin Ratio 1.3 TSH Urine Color YELLOW Urine Clarity CLEAR Urine pH 8.5 H Ur Specific [place] 1.020 Urine Protein NEGATIVE Urine Glucose (UA) NEGATIVE Urine Ketones NEGATIVE Urine Occult Blood NEGATIVE Urine Nitrite NEGATIVE Urine Bilirubin NEGATIVE Urine Urobilinogen 0.2 (NORMAL) Ur Leukocyte Esterase NEGATIVE Ur Microscopic Review NOT INDICATED Urine Culture Comments NOT INDICATED Urine HCG, Qual NEGATIVE Urine Opiates Screen NEGATIVE Ur Oxycodone Screen NEGATIVE Urine Methadone Screen NEGATIVE Ur Propoxyphene Screen NEGATIVE Ur Barbiturates Screen NEGATIVE Ur Tricyclics Screen NEGATIVE Ur Phencyclidine Scrn NEGATIVE Ur Amphetamine Screen NEGATIVE U Methamphetamines Scrn NEGATIVE U Benzodiazepines Scrn NEGATIVE Urine Cocaine Screen POSITIVE H U Cannabinoids Screen POSITIVE H Ethyl Alcohol < 5.0 09/13/21 14:09 WBC RBC Hgb Hct MCV MCH MCHC RDW Plt Count MPV Neut # (Auto) Lymph # (Auto) Storey # (Auto) Eos # (Auto) Baso # (Auto) Absolute Nucleated RBC Nucleated RBC % Sodium Potassium Chloride Carbon Dioxide Anion Gap BUN Creatinine Estimated GFR (MDRD) Glucose Calcium Total Bilirubin AST ALT Alkaline Phosphatase Total Protein Albumin Globulin Albumin/Globulin Ratio TSH 0.37 Urine Color Urine Clarity Urine pH Ur Specific [place] Urine Protein Urine Glucose (UA) Urine Ketones Urine Occult Blood Urine Nitrite Urine Bilirubin Urine Urobilinogen Ur Leukocyte Esterase Ur Microscopic Review Urine Culture Comments Urine HCG, Qual Urine Opiates Screen Ur Oxycodone Screen Urine Methadone Screen Ur Propoxyphene Screen Ur Barbiturates Screen Ur Tricyclics Screen Ur Phencyclidine Scrn Ur Amphetamine Screen U Methamphetamines Scrn U Benzodiazepines Scrn Urine Cocaine Screen U Cannabinoids Screen Ethyl Alcohol PD MEDICAL DECISION MAKING - ED course ED course: 21-year-old woman with odd affect and cocaine abuse presents with multiple complaints including hair loss and axillary pain. An ultrasound was done of the axilla with no abnormality which corresponds with physical exam showing no masses or abnormality there. Labs were generally unremarkable including thyroid function testing given her complaints. She has follow-up tomorrow which is appropriate. She is not taking her Risperdal, there is some sort of problem with the prescription on I offered to prescribe it to her but she declined. Departure - Departure Disposition: 01 Home, Self Care Clinical Impression: Breast pain, right, Hair loss, Cocaine abuse Condition: Good Record reviewed to determine appropriate education?: Yes Follow-Up: [facility] [Provider Group] Comments: No clear cause for your symptoms today. I would recommend you go back on Risperdal and avoid drug abuse. Follow-up with the surgeon tomorrow as scheduled and also reasonable to follow-up with a justowriter operator regarding the hair loss and the numbers on this form. Return for new or worsening symptoms.
[2021-09-13 14:13] LABS: MUDS CUTOFF CONCENTRATIONS CUTOFF CONC BELOW:
[2021-09-13 14:16] LABS: BASOPHILS # (AUTO) 0.1 10^3/uL (0.0-0.1); BASOPHILS % (AUTO) 1.3 %; EOSINOPHILS # (AUTO) 0.1 10^3/uL (0.0-0.7); EOSINOPHILS % (AUTO) 3.5 %; HGB - HEMOGLOBIN 13.1 g/dL (12.0-16.0); LYMPHOCYTES # (AUTO) 1.6 10^3/uL (1.5-3.5); LYMPHOCYTES % (AUTO) 42.2 %; MEAN CORPUSCULAR HEMOGLOBIN 30.8 pg (27.0-31.0); MEAN CORPUSCULAR HGB CONC 32.8 g/dL (32.0-36.0); MEAN CORPUSCULAR VOLUME 93.9 fL (81.0-99.0); MEAN PLATELET VOLUME 9.9 fL (7.9-10.8); MONOCYTES # (AUTO) 0.4 10^3/uL (0.0-1.0); MONOCYTES % (AUTO) 10.4 %; NEUTROPHILS # (AUTO) 1.6 10^3/uL (1.5-6.6); NEUTROPHILS % (AUTO) 42.3 %; PLT - PLATELET COUNT 258 10^3/uL (130-450); RED BLOOD COUNT 4.26 10^6/uL (4.20-5.40); RED CELL DISTRIBUTION WIDTH 12.8 % (12.0-15.0); WHITE BLOOD COUNT 3.7 x10^3/uL (4.8-10.8)
[2021-09-13 14:19] LABS: BILIRUBIN,URINE NEGATIVE (NEGATIVE); CLARITY,URINE CLEAR (CLEAR); GLUCOSE, URINE (UA) NEGATIVE (NEGATIVE); KETONES,URINE (UA) NEGATIVE (NEGATIVE); LEUKOCYTE ESTERASE, URINE NEGATIVE (NEGATIVE); NITRITE,URINE NEGATIVE (NEGATIVE); OCCULT BLOOD,URINE NEGATIVE (NEGATIVE); PH,URINE 8.5 PH (5.0-7.5); PROTEIN,URINE NEGATIVE (NEGATIVE); UROBILINOGEN,URINE 0.2 (NORMAL) E.U./dL (NORMAL)
[2021-09-13 14:20] LABS: HCG UR QUAL NEGATIVE
[2021-09-13 14:29] LABS: ALBUMIN 4.2 g/dL (3.2-5.5); ALBUMIN/GLOBULIN RATIO 1.3 (1.0-2.2); ALKALINE PHOSPHATASE 31 IU/L (42-121); ALT ALANINE AMINOTRANSFERASE 20 IU/L (10-60); AST ASPARTATE AMINOTRANSFERASE 19 IU/L (10-42); BUN - BLOOD UREA NITROGEN 8 mg/dL (6-20); CALCIUM 9.1 mg/dL (8.5-10.3); CARBON DIOXIDE - CO2 29 mmol/L (21-32); CHLORIDE 99 mmol/L (101-111); CREATININE 0.9 mg/dL (0.4-1.0); ETOH - ETHANOL < 5.0 mg/dL; GFR - MDRD 94 (>89); GLUCOSE 85 mg/dL (70-100); POTASSIUM 4.5 mmol/L (3.5-5.0); SODIUM 134 mmol/L (135-145); TOTAL PROTEIN 7.5 g/dL (6.7-8.2)
[2021-09-13 14:30] LABS: AMPHETAMINE SCREEN,URINE NEGATIVE (NEGATIVE); BARBITURATE SCREEN,UR NEGATIVE (NEGATIVE); BENZODIAZEPINES SCREEN, URINE NEGATIVE (NEGATIVE); COCAINE SCREEN URINE POSITIVE (NEGATIVE); METHADONE SCREEN, URINE NEGATIVE (NEGATIVE); METHAMPHETAMINES SCREEN, URINE NEGATIVE (NEGATIVE); OPIATE SCREEN, URINE NEGATIVE (NEGATIVE); OXYCODONE SCREEN, URINE NEGATIVE (NEGATIVE); PROPOXYPHENE SCREEN, URINE NEGATIVE (NEGATIVE); THC CANNABINOID SCREEN, URINE POSITIVE (NEGATIVE); TRICYCLIC ANTIDEPRESSANT,URINE NEGATIVE (NEGATIVE)
[2021-09-13 15:13] VITALS: BP 129/73
--- NOTE | 2021-09-13 15:55 | Ultrasound Report ---
PROCEDURE: Breast Unilateral Limited INDICATIONS: sensation of axillary mass TECHNIQUE: Right breast ultrasound was performed from the 9:00 to 12:00 COMPARISON: None. FINDINGS: Ultrasound was performed from the 9:00 to the 12:00 position 7 cm from the nipple and the right axill a. No mass or abnormal lymph node is identified. IMPRESSION: BI-RADS 1. Recommend follow-up with primary care physician for clinical follow-up. Reviewed by: Jhonathan Cohen on 09/13/2021 2:53 PM [facility] Approved by: Jhonathan Cohen on 09/13/2021 2:53 PM [facility] Station ID: [id number]
== END 2021-09-13 15:13 | disposition home or self-care (01) ==
LOC: ED 13:35
DX: N64.4 Mastodynia (principal); L65.9 Nonscarring hair loss, unspecified; F14.10 Cocaine abuse, uncomplicated; I10 Essential (primary) hypertension; T43.596A Underdosing of other antipsychotics and neuroleptics, initial encounter; Z91.138 Patient's unintentional underdosing of medication regimen for other reason; F31.9 Bipolar disorder, unspecified
CPT/HCPCS: 36415; 76642; 80053; 80306; 81003; 81025; 84443; 85025; 99282; 99284; G0480; 80320; 81001; 87086

== ENCOUNTER 2021-11-15 20:04 | Emergency (ER) | payer OTHER, MEDICARE ==
[2021-11-15 20:12] VITALS: BP 162/102
== END 2021-11-15 20:24 | disposition home or self-care (01) ==
LOC: ED 20:04
DX: Z53.21 Procedure and treatment not carried out due to patient leaving prior to being seen by health care provider (principal)

== ENCOUNTER 2022-01-14 15:00 | Outpatient (CLI) | payer MEDICARE, MEDICAID ==
[2022-01-14 19:33] LABS: HCG,QUALITATIVE BLOOD NEGATIVE
[2022-01-14 19:40] LABS: THYROID STIMULATING HORMONE 3.53 uIU/mL (0.34-5.60)
== END 2022-01-14 15:01 | disposition home or self-care (01) ==
LOC: LAB.N 15:00
PROVIDERS: ATTEND Nurse Practitioner Family
DX: E07.9 Disorder of thyroid, unspecified (principal); Z32.00 Encounter for pregnancy test, result unknown
CPT/HCPCS: 36415; 84443; 84703

== ENCOUNTER 2022-01-22 19:06 | Emergency (ER) | payer MEDICARE, MEDICAID ==
[2022-01-22 19:11] VITALS: BP 125/60
--- NOTE | 2022-01-22 19:29 | ED Physician Documentation ---
PD HPI LOWER EXT INJURY - Stated complaint Stated Complaint: RIGHT ANKLE PX/GLF - Chief complaint Chief Complaint: Trauma Ext - History obtained from History obtained from: Patient (Walking in high heels today and tripped injuring her right ankle. 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 : None HEENT: None Psych: Depression, Anxiety, Bipolar disorder Musculoskeletal: None Derm: None - Past Surgical History Past Surgical History: No - Present Medications Home Medications: Ambulatory Orders Medication Instructions Recorded Confirmed QUEtiapine [SEROquel] 200 mg PO DAILY 01/22/22 01/22/22 - Allergies Allergies/Adverse Reactions: Allergies Allergy/AdvReac Type Severity Reaction Status Date / Time Sulfa (Sulfonamide Allergy Unknown Verified 01/22/22 19:11 Antibiotics) - Social History Does the pt smoke?: No Smoking Status: Never smoker Does the pt drink ETOH?: Yes Does the pt have substance abuse?: Yes - Immunizations Immunizations are current?: Yes PD ED PE NORMAL - Vitals Vital signs reviewed: Yes - General General: Alert and oriented X 3, No acute distress, Other (She is belligerent, swearing a lot for no apparent reason. For example tells the nurse that he is rude when asking screening questions. I witnessed this interaction and he was not being rude in any way) - Extremities Extremities: Other (Tender over the lateral malleolus and ATFL without proximal fibular tenderness, there is no foot tenderness.) - Neuro Neuro: Alert and oriented X 3, Normal speech - Psych Psych: Other (Odd affect) Results - Vitals Vitals: Vital Signs - 24 hr 01/22/22 19:07 Temperature 36.3 C L Heart Rate 116 H Respiratory 16 Rate Blood Pressure 125/60 O2 Saturation 100 Oxygen O2 Source Room air Departure - Departure Disposition: 01 Home, Self Care Clinical Impression: Right ankle sprain Condition: Good Record reviewed to determine appropriate education?: Yes Instructions: ED Sprain Ankle W X Ray Comments: X-ray looking okay without signs of fracture or joint problems. Follow-up with your doctor in a week if not improved. Return for new or worsening symptoms. Tylenol and/or ibuprofen as needed for pain. Discharge Date/Time: 01/22/22 19:54
[2022-01-22] MEDS ORDERED: IBUPROFEN 800 MG TABLET PO STA (19:30)
[2022-01-22] MEDS ORDERED: HYDROcod/ACETAM 5/325 MG TABLET PO STA (19:30)
--- NOTE | 2022-01-22 19:50 | XRAY Report ---
PROCEDURE: Ankle 3 View RT INDICATIONS: Trauma TECHNIQUE: 3 views of the ankle were acquired. COMPARISON: None FINDINGS: Bones: No fractures or dislocations. Ankle mortise is normally aligned. No suspicious bony lesions . Soft tissues: Lateral malleoli are edema. Achilles tendon appears normal. IMPRESSION: No visualized acute fracture or dislocation. However, occult injury cannot be excluded. Recommend short interval imaging follow-up in 7-10 days as clinically indicated for additional evalua tion.. Reviewed by: Melissa Evans MD on 01/22/2022 7:49 PM PDT Approved by: Melissa Evans MD on 01/22/2022 7:49 PM PDT Station ID: [id number]
== END 2022-01-22 19:54 | disposition home or self-care (01) ==
LOC: ED 19:06
DX: S93.401A Sprain of unspecified ligament of right ankle, initial encounter (principal); W18.40XA Slipping, tripping and stumbling without falling, unspecified, initial encounter; Y93.01 Activity, walking, marching and hiking
CPT/HCPCS: 73610; 99282; 99283; A9270

== ENCOUNTER 2022-01-25 12:24 | Emergency (ER) | payer MEDICARE, MEDICAID ==
[2022-01-25] MEDS ORDERED: KETOROLAC 60 MG/2 ML VIAL IM STA (12:50)
--- NOTE | 2022-01-25 12:55 | ED Physician Documentation ---
History of Present Illness - Stated complaint Stated Complaint: RT FT INJ - Chief complaint Chief Complaint: Ext Problem - Additonal information Additional information: 21-year-old female return to the emergency department for reevaluation of right ankle pain. Seen here on 22 January by my colleague. She had been walking in high heels and had an inversion injury. At that time initial imaging was negative. Patient was given an Tio bandage and an air splint. She has been taking some Tylenol without relief of pain. Due to increased swelling and ecchymosis she returns to the emergency department. She does not have crutches. 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 HEENT: None Psych: Depression, Anxiety, Bipolar disorder Musculoskeletal: None Derm: None - Past Surgical History Past Surgical History: No - Present Medications Home Medications: Ambulatory Orders Medication Instructions Recorded Confirmed QUEtiapine [SEROquel] 200 mg PO DAILY 01/22/22 01/22/22 - Allergies Allergies/Adverse Reactions: Allergies Allergy/AdvReac Type Severity Reaction Status Date / Time Sulfa (Sulfonamide Allergy Unknown Verified 01/25/22 12:42 Antibiotics) - Social History Does the pt smoke?: No Smoking Status: Never smoker Does the pt drink ETOH?: Yes Does the pt have substance abuse?: Yes - Immunizations Immunizations are current?: Yes PD ED PE EXPANDED - General General: Alert, In Pain - Extremities Extremities: Right ankle (moderate swelling/ecchymosis right lateral ankle. Painful inversion eversion dorsi and plantar flexion. Tenderness of the lateral malleolus. No significant pain elicited at the proximal fibular head.) Results - Vitals Vitals: Vital Signs - 24 hr 01/25/22 12:41 Temperature 36.4 C L Heart Rate 74 Respiratory 18 Rate Blood Pressure 152/91 H O2 Saturation 100 Oxygen O2 Source Room air - Rads (name of study) right ankle Radiology: Final report received (Persistent lateral malleolar soft tissue swelling without underlying fracture or dislocation.) PD MEDICAL DECISION MAKING - ED course Complexity details: reviewed results, re-evaluated patient, considered differential, d/w patient ED course: 21-year-old female presents emergency department for worsening right lateral ankle pain. Seen on the for similar after an inversion injury negative imaging at that time. X-ray today again demonstrates no findings of fracture. Patient has however been ambulatory on the ankle she does not have crutches. Pain was markedly improved following Toradol here in the ER she is provided crutches again Tio wrap and given the air splint. Discussed that in the setting of a severe ankle sprain she is likely to have recovery time of 2 to 3 weeks. Emergent return precautions were discussed for failure of symptoms to resolve. Departure - Departure Disposition: Home, Self Care Clinical Impression: Moderate right ankle sprain Qualifiers: Encounter type: subsequent encounter Qualified Code(s): S93.401D - Sprain of unspecified ligament of right ankle, subsequent encounter Condition: Stable Record reviewed to determine appropriate education?: Yes Comments: You are seen today for worsening pain in your right ankle. The x-ray today again does not show any findings of a fracture. I suspect that the pain is worse because you have not been able to be off of it with crutches. I would like you to continue using the Tio wrap and the air splint when out of bed. Use the crutches for the next 7 to 10 days. Take Tylenol 500 mg with food 2-3 times a day or alternatively ibuprofen 600 mg with food also 2-3 times a day. Ice your ankle for 10 minutes 2-3 times a day. In general I would expect pain swelling and ability to bear weight to be getting better after 1 to 2 weeks. If not improved you likely will need referral to physical therapy so I encourage you to have close follow-up with your primary care provider.
--- NOTE | 2022-01-25 13:10 | XRAY Report ---
PROCEDURE: Ankle 3 View RT INDICATIONS: Worsening pain swelling; sprain 01/22 TECHNIQUE: 3 views of the ankle were acquired. COMPARISON: 01/22/2022 FINDINGS: Bones: No acute or subacute fractures. No dislocations. Ankle mortise is normally aligned. No susp icious bony lesions. Soft tissues: No tibiotalar joint effusion. Achilles tendon appears normal. There is persistent so ft tissue swelling overlying the lateral malleolus. IMPRESSION: Persistent lateral malleolar soft tissue swelling without underlying fracture or disloca tion. No reactive changes of subacute fracture healing noted. If there is continued clinical concern for pathology or occult fracture, consider further evaluation with advanced imaging (CT, MRI, bone scan) if symptoms persist. Reviewed by: Krish Fernández MD on 01/25/2022 1:09 PM PDT Approved by: Krish Fernández MD on 01/25/2022 1:09 PM PDT Station ID: [id number]
[2022-01-25 14:11] VITALS: BP 130/85
== END 2022-01-25 14:10 | disposition home or self-care (01) ==
LOC: ED 12:24
DX: S93.401D Sprain of unspecified ligament of right ankle, subsequent encounter (principal); X50.1XXD Overexertion from prolonged static or awkward postures, subsequent encounter
CPT/HCPCS: 96372; 99282; 99283

== ENCOUNTER 2022-02-16 14:43 | Outpatient (CLI) | payer MEDICARE, MEDICAID ==
[2022-02-16 17:58] LABS: BASOPHILS # (AUTO) 0.1 10^3/uL (0.0-0.1); BASOPHILS % (AUTO) 0.8 %; EOSINOPHILS # (AUTO) 0.5 10^3/uL (0.0-0.7); EOSINOPHILS % (AUTO) 5.2 %; HCT - HEMATOCRIT 38.4 % (37.0-47.0); HGB - HEMOGLOBIN 13.1 g/dL (12.0-16.0); LYMPHOCYTES # (AUTO) 2.3 10^3/uL (1.5-3.5); LYMPHOCYTES % (AUTO) 25.9 %; MEAN CORPUSCULAR HEMOGLOBIN 30.5 pg (27.0-31.0); MEAN CORPUSCULAR HGB CONC 34.1 g/dL (32.0-36.0); MEAN CORPUSCULAR VOLUME 89.5 fL (81.0-99.0); MONOCYTES # (AUTO) 0.9 10^3/uL (0.0-1.0); MONOCYTES % (AUTO) 9.5 %; NEUTROPHILS # (AUTO) 5.3 10^3/uL (1.5-6.6); NEUTROPHILS % (AUTO) 58.4 %; PLT - PLATELET COUNT 319 10^3/uL (130-450); RED BLOOD COUNT 4.29 10^6/uL (4.20-5.40); RED CELL DISTRIBUTION WIDTH 12.2 % (12.0-15.0)
[2022-02-16 18:17] LABS: ALBUMIN 4.9 g/dL (3.2-5.5); ALBUMIN/GLOBULIN RATIO 1.3 (1.0-2.2); BILIRUBIN,TOTAL 1.6 mg/dL (0.2-1.0); CALCIUM 9.6 mg/dL (8.5-10.3); CREATININE 0.8 mg/dL (0.4-1.0); POTASSIUM 3.6 mmol/L (3.5-5.0); TOTAL PROTEIN 8.7 g/dL (6.7-8.2)
[2022-02-16 18:31] LABS: THYROID STIMULATING HORMONE 1.05 uIU/mL (0.34-5.60)
[2022-02-16 21:01] LABS: CHLAMYDIA TRACHOMATIS DNA NEGATIVE (NEGATIVE); NEISSERIA GONORRHOEAE DNA NEGATIVE (NEGATIVE); TRICHOMONAS VAGINALIS DNA NEGATIVE (NEGATIVE)
[2022-02-17 05:12] LABS: RPR Non Reactive (Non Reactive)
[2022-02-17 06:11] LABS: HCV AB <0.1 s/co ratio (0.0-0.9)
[2022-02-17 08:18] LABS: HIV SCREEN 4TH GENERATION Non Reactive (Non Reactive)
== END 2022-02-16 14:44 | disposition home or self-care (01) ==
LOC: LAB.N 14:43
PROVIDERS: ATTEND Family Medicine
DX: F31.81 Bipolar II disorder (principal); N91.2 Amenorrhea, unspecified; Z11.3 Encounter for screening for infections with a predominantly sexual mode of transmission
CPT/HCPCS: 36415; 80053; 84443; 84702; 85025; 86592; 86803; 87491; 87591; 87661; G0475; 80306; 87389; 87536

== ENCOUNTER 2022-04-21 16:41 | Outpatient (CLI) | payer MEDICARE, MEDICAID ==
--- NOTE | 2022-04-21 17:53 | Ultrasound Report ---
PROCEDURE: OB First Trimester w/TV INDICATIONS: + PREG TEST OUTSIDE/PRIOR DATING DATA: Last menstrual period (LMP): 06/06/2022. LMP-based estimated date of delivery (LISET): 10/11/2022. First dating scan (date and location): 04/21/2022. Estimated date of delivery (LISET) from first dating scan: 11/16/2022. TECHNIQUE: Real-time scanning was performed of the fetus and maternal pelvic organs, with image documentation. Endovaginal scanning was also performed to better visualize the fetus and maternal ovaries. COMPARISON: None FINDINGS: There is a single living intrauterine gestation, with a heart rate of 164 bpm. [place]-rump lengt h is 32 mm, corresponding to a 10 week 1 day gestation. There is a 16 mm subchorionic hemorrhage pres ent. Measurement variability in dating: +/- 4 weeks by LMP, +/- 7 days by mean sac diameter (use before 6 weeks gestation if crown-rump length not able to be measured), +/- 5 days by crown-rump length (6-12 weeks gestation). Maternal organs: Right-sided corpus luteal cyst is present. IMPRESSION: 1. Single living intrauterine gestation. 2. Small subchorionic hemorrhage. Reviewed by: Brad Self MD on 04/21/2022 5:51 PM PDT Approved by: Brad Self MD on 04/21/2022 5:51 PM PDT Station ID: [id number]
== END 2022-04-21 16:42 | disposition home or self-care (01) ==
LOC: DI 16:41
PROVIDERS: ATTEND Nurse Practitioner Family
DX: O20.8 Other hemorrhage in early pregnancy (principal); Z3A.10 10 weeks gestation of pregnancy

== ENCOUNTER 2022-04-26 11:39 | Outpatient (CLI) | payer MEDICARE, MEDICAID ==
[2022-04-26 12:06] LABS: BASOPHILS % (AUTO) 0.6 %; EOSINOPHILS # (AUTO) 0.1 10^3/uL (0.0-0.7); EOSINOPHILS % (AUTO) 1.9 %; HGB - HEMOGLOBIN 12.3 g/dL (12.0-16.0); LYMPHOCYTES # (AUTO) 1.7 10^3/uL (1.5-3.5); LYMPHOCYTES % (AUTO) 34.7 %; MEAN CORPUSCULAR HEMOGLOBIN 29.9 pg (27.0-31.0); MEAN CORPUSCULAR HGB CONC 34.2 g/dL (32.0-36.0); MEAN CORPUSCULAR VOLUME 87.6 fL (81.0-99.0); MEAN PLATELET VOLUME 10.3 fL (7.9-10.8); MONOCYTES # (AUTO) 0.3 10^3/uL (0.0-1.0); MONOCYTES % (AUTO) 6.1 %; NEUTROPHILS # (AUTO) 2.7 10^3/uL (1.5-6.6); NEUTROPHILS % (AUTO) 56.3 %; PLT - PLATELET COUNT 259 10^3/uL (130-450); RED BLOOD COUNT 4.11 10^6/uL (4.20-5.40); RED CELL DISTRIBUTION WIDTH 11.7 % (12.0-15.0); WHITE BLOOD COUNT 4.8 x10^3/uL (4.8-10.8)
== END 2022-04-26 11:40 | disposition home or self-care (01) ==
LOC: LAB 11:39
PROVIDERS: ATTEND Obstetrics & Gynecology
DX: Z01.812 Encounter for preprocedural laboratory examination (principal); Z64.0 Problems related to unwanted pregnancy
CPT/HCPCS: 36415; 85025; 86850; 86900; 86901

== ENCOUNTER 2022-04-27 08:44 | Day surgery (SDC) | payer MEDICARE, MEDICAID ==
[~2022-04-27 08:44] MED LIST: LIDOCAINE 2%-EPI 1:100000 20 ML MDV ONE
[2022-04-27] MEDS ORDERED: LACTATED RINGERS 1,000 ML IV ONE ×2 (08:49→11:06)
[2022-04-27] MEDS ORDERED: DOXYCYCLINE 100 MG TABLET PO ONE (09:00)
--- NOTE | 2022-04-27 09:41 | ANESTHESIA ---
Pre-Anesthesia VS, & Labs - Diagnosis Undesired - Procedure Dilatation and curettage Vital Signs: Temp Pulse Resp BP Pulse Ox 36.7 C 89 16 125/78 98 04/27/22 08:55 04/27/22 08:55 04/27/22 08:55 04/27/22 08:55 04/27/22 08:55 Height: 5 ft 8 in Weight (kg): 81 kg Body Mass Index: 27.1 BMI Classification: Overweight - NPO >8 hours - Is Patient ?: Yes - Lab Results Lab results reviewed: Yes Home Medications and Allergies Home Medications: Ambulatory Orders Duloxetine HCl [Cymbalta] 30 mg PO BID 04/26/22 OLANZapine [Zyprexa] 10 mg PO DAILY 04/26/22 clindamycin HCL [Clindamycin HCl] 300 mg PO TID 04/26/22 Duloxetine HCl [Cymbalta] 30 mg PO BID 04/26/22 OLANZapine [Zyprexa] 10 mg PO DAILY 04/26/22 clindamycin HCL [Clindamycin HCl] 300 mg PO TID 04/26/22 Allergies/Adverse Reactions: Allergies Allergy/AdvReac Type Severity Reaction Status Date / Time Sulfa (Sulfonamide Allergy "makes Verified 04/26/22 12:03 Antibiotics) bones hurt" amoxicillin AdvReac Nausea Verified 04/26/22 12:03 Anes History & Medical History - Anesthetic History Anesthesia Complications: reports: No previous complications Family history of Anesthesia Complications: Denies Family history of Malignant Hyperthermia: Denies - Medical History Cardiovascular: reports: Hypertension Pulmonary: reports: None Gastrointestinal: reports: None Urinary: reports: None Neuro: reports: None Musculoskeletal: reports: None Endocrine/Autoimmune: reports: None Blood Disorders: reports: None Skin: reports: None Smoking Status: Never smoker Psychosocial: reports: Depression, Anxiety, Other (Bipolar) History of Cancer?: No Exam General: Alert, Oriented x3 Dental: WNL Mouth Openin Fingerbreadth Neck Mobility: Normal Mallampati classification: I Thyromental Distance: 4-6 cm Respiratory: Lungs clear Cardiovascular: Regular rate, Normal S1, Normal S2, No murmurs Mental/Cognitive Status: Alert/Oriented X3, Normal for patient Cognitive Status: Within normal limits Plan Anesthesia Type: General Consent for Procedure(s) Verified and Reviewed: Yes Code Status: Attempt Resuscitation ASA classification: 2-Mild systemic disease Is this case an emergency?: No
[2022-04-27] MEDS ORDERED: MIDAZOLAM 2 MG/2 ML VIAL ONE (09:57)
[2022-04-27] MEDS ORDERED: fentaNYL 100 MCG/2 ML VIAL ONE (09:57)
[2022-04-27] MEDS ORDERED: PROPOFOL 200 MG/20 ML VIAL IVP ONE (09:57)
[2022-04-27] MEDS ORDERED: LIDOCAINE-MPF 2% 5 ML VIAL ONE (09:58)
[2022-04-27] MEDS ORDERED: DEXAMETHASONE 4 MG/ML VIAL ONE (09:59)
[2022-04-27] MEDS ORDERED: ONDANSETRON 4 MG/2 ML VIAL ONE (09:59)
[2022-04-27] MEDS ORDERED: ACETAMINOPHEN 1,000 MG/100 ML 1,000 MG/100 ML BAG IV ONE (10:16)
[2022-04-27] MEDS ORDERED: LIDOCAINE 1%-EPI 1:100000 30 ML MDV SUBQ ONE ×2 (10:23)
[2022-04-27] MEDS ORDERED: fentaNYL 100 MCG/2 ML VIAL IVP PRN (10:23)
[2022-04-27] MEDS ORDERED: HYDROmorphone 0.5 MG/0.5 ML SYRINGE IVP PRN (10:23)
[2022-04-27] MEDS ORDERED: ATROPINE ABBOJECT 1 MG/10 ML SYRINGE IVP PRN (10:23)
[2022-04-27] MEDS ORDERED: NALOXONE 0.4 MG/ML VIAL IVP PRN (10:23)
[2022-04-27] MEDS ORDERED: ePHEDrine 50 MG/ML VIAL IVP PRN (10:23)
[2022-04-27] MEDS ORDERED: ONDANSETRON 4 MG/2 ML VIAL IVP PRN (10:23)
[2022-04-27] MEDS ORDERED: MORPHINE 2 MG/ML CARPUJECT IVP PRN (10:23)
[2022-04-27] MEDS ORDERED: HYDROcod/ACETAM 10 MG/325 MG TABLET PO PRN (10:37)
--- NOTE | 2022-04-27 10:43 | OPERATIVE REPORT ---
Operative Report - General Procedure Date: 04/27/22 Planned Procedure: suction dilation and curettage Pre-Op Diagnosis: 10 weeks gestation, undesired Procedure Performed: Suction dilation and curettage Post Op Diagnosis: Same - Procedure Note Primary Surgeon: Festus Yanez MD Secondary Surgeon: INDIGO Lang Anesthesia Provider: Mendy Kwok CRNA Anesthesia Technique: General LMA Pathology: Products of conception IV Fluids (mL): 700 Estimated Blood Loss (mL): 200 Urine Output (mL): 75 Complications: None - Other Other Information/Narrative: Prior to the procedure, patient was counseled on the risk, benefits, alternatives of suction D&C. She desired termination of and was too far for medical therapy. We discussed the risk and benefits of suction D&C including bleeding, infection, uterine perforation. Patient agreed to these and wanted to proceed with procedure. Suction D&C Prior to the procedure, patient received 200 mg of oral doxycycline. Patient was placed in the dorsal high lithotomy position with candy-cane stirrups. The bladder was drained via straight catheter producing 75 mL of urine. General anesthesia was obtained without difficulty. The pelvis was prepped and the patient was draped in the usual fashion. Careful pelvic examination is performed to locate the position of the uterus and noted a closed cervical os. A bivalve speculum was placed in the vagina and the cervix was grasped with a single-tooth tenaculum and gently drawn towards the vaginal outlet. A paracervical block was performed using 2% lidocaine with epinephrine. Using gentle pressure, the cervix was dilated to 10 mm. A 10 mm, ridged, curved suction catheter was used for suction. Under ultrasound guidance, the catheter was placed without suction into the uterine cavity. Blood and products of conception were collected in the section catheter container. After adequate removal of products, a sharp curette was used to remove additional products of conception adherent to uterine priest. The products were collected on a Telfa pad. After removing products of conception and feeling circumferential uterine cri, adequate hemostasis was noted from coming from the uterus and the tenaculum was removed. Products of conception were examined in a sterile container. Upon examination the patient was hemostatic and all instruments were removed. Patient was returned to dorsal supine position and awoke from anesthesia. She was taken to the PACU in good condition.
[2022-04-27] MEDS ORDERED: LACTATED RINGERS 1,000 ML IV SCH (11:00)
[2022-04-27 11:43] VITALS: BP 135/86
--- NOTE | 2022-04-27 13:16 | ANESTHESIA POST OP EVALUATION ---
Anesthesia Post Eval - Post Anesthesia Eval Vitals: Last Vital Signs Temp 36.5 C 04/27/22 11:30 Pulse 71 04/27/22 11:30 Resp 16 04/27/22 11:30 BP 135/86 H 04/27/22 11:30 Pulse Ox 100 04/27/22 11:30 CV Function Including HR & BP: Stable Pain Control: Satisfactory Nausea & Vomiting: Negative Mental Status: Baseline Respiratory Status: Airway Patent Hydration Status: Satisfactory Anesthesia Complications: None
== END 2022-04-27 08:45 | disposition home or self-care (01) ==
LOC: SDS 08:44
PROVIDERS: ATTEND Obstetrics & Gynecology
PROC: 10A07ZZ Abortion of Products of Conception, Via Natural or Artificial Opening (ICD-10-PCS; principal; 2022-04-27 09:45)
DX: Z33.2 Encounter for elective termination of pregnancy (principal); Z64.0 Problems related to unwanted pregnancy; I10 Essential (primary) hypertension
CPT/HCPCS: 59840; A9270; J0131; J7120

== ENCOUNTER 2022-05-27 04:34 | Emergency (ER) | payer MEDICARE, MEDICAID ==
[2022-05-27 08:39] VITALS: BP 150/106
--- NOTE | 2022-05-27 20:26 | ED Physician Documentation ---
ED Addendum - Addendum Addendum: 05/27/22 20:25 SEE PAPER CHART (MEDITECH DOWN TIME)
== END 2022-05-27 04:40 | disposition left against medical advice (07) ==
LOC: ED 04:34
DX: R20.2 Paresthesia of skin (principal)
CPT/HCPCS: 99281

== ENCOUNTER 2022-07-27 08:00 | Outpatient (CLI) | payer MEDICARE, MEDICAID ==
--- NOTE | 2022-07-27 17:36 | XRAY Report ---
PROCEDURE: Ankle 3 View RT INDICATIONS: R ANKLE PX TECHNIQUE: 3 views of the ankle were acquired. COMPARISON: January 25, 2022 FINDINGS: Bones: No acute fracture. Ankle mortise is maintained. Soft tissues: No suspicious soft tissue calcifications. IMPRESSION: No acute radiographic abnormality. Given history of persistent/recurrent pain, consider further evalu ation with MRI if needed. Reviewed by: Cam Lopez MD on 07/27/2022 5:35 PM PDT Approved by: Cam Lopez MD on 07/27/2022 5:35 PM PDT Station ID: [id number]
== END 2022-07-27 23:59 | disposition home or self-care (01) ==
LOC: DI.N 08:00
PROVIDERS: ATTEND Physician Assistant
DX: M25.571 Pain in right ankle and joints of right foot (principal)

== ENCOUNTER 2022-09-21 14:40 | Emergency (ER) | payer MEDICARE, MEDICAID ==
--- NOTE | 2022-09-21 15:40 | ED Physician Documentation ---
History of Present Illness - Stated complaint Stated Complaint: SWELLING FEET/MOUTH RASH - Chief complaint Chief Complaint: General - History obtained from History obtained from: Patient - History of Present Illness Timing: Today Pain level max: 0 Pain level now: 0 - Additonal information Additional information: Patient is a 22-year-old female who presents to the emergency department crying and stating that she is concerned about a possible STD. She denies any vaginal bleeding or discharge. She states that her boyfriend has been "busted" and "the largest drug bust in history" in [place]. She states that she is having her phone broadcast to [employer] by people at the homeless assisted. She denies any drug use but states that she does not want a drug test. She also states that she has a rash on her bilateral ankles. No fevers. No chills. No vomiting. Denies suicidal or homicidal ideation. She is afraid that her significant other's "drug friends" are going to come after her. Review of Systems Unable to obtain: AMS, Uncooperative PD PAST MEDICAL HISTORY - Past Medical History Cardiovascular: Hypertension Respiratory: None Neuro: None Endocrine/Autoimmune: None GI: None STAGE DIRECTOR: None : None HEENT: None Psych: Depression, Anxiety, Bipolar disorder, Other Musculoskeletal: None Derm: None - Past Surgical History Past Surgical History: No - Present Medications Home Medications: Ambulatory Orders Medication Instructions Recorded Confirmed Duloxetine HCl [Cymbalta] 30 mg PO BID 04/26/22 09/21/22 OLANZapine [Zyprexa] 10 mg PO DAILY 04/26/22 09/21/22 - Allergies Allergies/Adverse Reactions: Allergies Allergy/AdvReac Type Severity Reaction Status Date / Time Sulfa (Sulfonamide Allergy "makes Verified 09/21/22 14:51 Antibiotics) bones hurt" amoxicillin AdvReac Nausea Verified 09/21/22 14:51 - Social History Does the pt smoke?: No Smoking Status: Never smoker Does the pt drink ETOH?: Yes Does the pt have substance abuse?: Yes - Immunizations Immunizations are current?: Yes - POLST Patient has POLST: No PD ED PE NORMAL - Vitals Vital signs reviewed: Yes - General General: Well developed/nourished, Other (Patient is crying, tearful, pressured speech) - HEENT HEENT: Moist mucous membranes, Pharynx benign, Other (Normal intraoral exam.) - Neck Neck: Supple, no meningeal sign - Cardiac Cardiac: RRR, Strong equal pulses - Respiratory Respiratory: No respiratory distress, Clear bilaterally - Abdomen Abdomen: Soft, Non tender, Non distended - Back Back: No CVA TTP, No spinal TTP - Derm Derm: Warm and dry - Extremities Extremities: No edema, Other (Mild excoriation gallardo to the bilateral ankles. No visible rash. No signs of infection.) - Neuro Neuro: Alert and oriented X 3 - Psych Psych: Other (Tearful, anxious) Results - Vitals Vitals: Vital Signs - 24 hr 09/21/22 09/21/22 14:52 17:53 Temperature 37.5 C 36.6 C Heart Rate 117 H 103 H Respiratory 24 16 Rate Blood Pressure 169/103 H 148/100 H O2 Saturation 97 98 Oxygen O2 Source Room air - Labs Labs: Laboratory Tests 09/21/22 09/21/22 09/21/22 15:40 15:46 15:46 WBC 8.2 RBC 4.15 L Hgb 12.0 Hct 36.7 L MCV 88.4 MCH 28.9 MCHC 32.7 RDW 13.8 Plt Count 317 MPV 10.1 Neut # (Auto) 5.2 Lymph # (Auto) 2.0 Hoke # (Auto) 0.6 Eos # (Auto) 0.2 Baso # (Auto) 0.1 Absolute Nucleated RBC 0.00 Nucleated RBC % 0.0 Sodium 135 Potassium 3.5 Chloride 97 L Carbon Dioxide 28 Anion Gap 10.0 BUN 13 Creatinine 0.8 Estimated GFR (MDRD) 107 Glucose 82 Calcium 8.8 Total Bilirubin 1.0 AST 31 ALT 32 Alkaline Phosphatase 41 L Total Protein 8.0 Albumin 4.3 Globulin 3.7 Albumin/Globulin Ratio 1.2 Lipase 40 TSH Urine Color YELLOW Urine Clarity HAZY Urine pH 6.0 Ur Specific [place] 1.020 Urine Protein NEGATIVE Urine Glucose (UA) NEGATIVE Urine Ketones NEGATIVE Urine Occult Blood LARGE H Urine Nitrite NEGATIVE Urine Bilirubin NEGATIVE Urine Urobilinogen 4 H Ur Leukocyte Esterase TRACE H Urine RBC TNTC H Urine WBC 0-3 Ur Squamous Epith Cells FEW Squamous Urine Bacteria Few Ur Microscopic Review INDICATED Urine Culture Comments INDICATED Urine HCG, Qual NEGATIVE Nasal Adenovirus (PCR) Nasal B. parapertussis DNA (PCR) Nasal Coronavir 229E PCR Nasal Coronavir HKU1 PCR Nasal Coronavir NL63 PCR Nasal Coronavir OC43 PCR Nasal Enterovir/Rhinovir PCR Nasal Influenza B PCR Nasal Influenza A PCR Nasal Parainfluen 1 PCR Nasal Parainfluen 2 PCR Nasal Parainfluen 3 PCR Nasal Parainfluen 4 PCR Nasal RSV (PCR) Nasal B.pertussis DNA PCR Nasal C.pneumoniae (PCR) Camacho Human Metapneumo PCR Nasal M.pneumoniae (PCR) Nasal SARS-CoV-2 (PCR) Salicylates < 6.0 Urine Opiates Screen Not Reportable Ur Oxycodone Screen NEGATIVE Urine Methadone Screen NEGATIVE Ur Propoxyphene Screen NEGATIVE Acetaminophen < 10 L Ur Barbiturates Screen NEGATIVE Ur Tricyclics Screen NEGATIVE Ur Phencyclidine Scrn NEGATIVE Ur Amphetamine Screen POSITIVE H U Methamphetamines Scrn POSITIVE H U Benzodiazepines Scrn NEGATIVE Urine Cocaine Screen POSITIVE H U Cannabinoids Screen POSITIVE H Ethyl Alcohol < 5.0 09/21/22 09/21/22 15:46 16:35 WBC RBC Hgb Hct MCV MCH MCHC RDW Plt Count MPV Neut # (Auto) Lymph # (Auto) [place]oke # (Auto) Eos # (Auto) Baso # (Auto) Absolute Nucleated RBC Nucleated RBC % Sodium Potassium Chloride Carbon Dioxide Anion Gap BUN Creatinine Estimated GFR (MDRD) Glucose Calcium Total Bilirubin AST ALT Alkaline Phosphatase Total Protein Albumin Globulin Albumin/Globulin Ratio Lipase TSH 0.91 Urine Color Urine Clarity Urine pH Ur Specific [place] Urine Protein Urine Glucose (UA) Urine Ketones Urine Occult Blood Urine Nitrite Urine Bilirubin Urine Urobilinogen Ur Leukocyte Esterase Urine RBC Urine WBC Ur Squamous Epith Cells Urine Bacteria Ur Microscopic Review Urine Culture Comments Urine HCG, Qual Nasal Adenovirus (PCR) NOT DETECTED Nasal B. parapertussis DNA (PCR) NOT DETECTED Nasal Coronavir 229E PCR NOT DETECTED Nasal Coronavir HKU1 PCR NOT DETECTED Nasal Coronavir NL63 PCR NOT DETECTED Nasal Coronavir OC43 PCR NOT DETECTED Nasal Enterovir/Rhinovir PCR NOT DETECTED Nasal Influenza B PCR NOT DETECTED Nasal Influenza A PCR NOT DETECTED Nasal Parainfluen 1 PCR NOT DETECTED Nasal Parainfluen 2 PCR NOT DETECTED Nasal Parainfluen 3 PCR NOT DETECTED Nasal Parainfluen 4 PCR NOT DETECTED Nasal RSV (PCR) NOT DETECTED Nasal B.pertussis DNA PCR NOT DETECTED Nasal C.pneumoniae (PCR) NOT DETECTED Camacho Human Metapneumo PCR NOT DETECTED Nasal M.pneumoniae (PCR) NOT DETECTED Nasal SARS-CoV-2 (PCR) NOT DETECTED Salicylates Urine Opiates Screen Ur Oxycodone Screen Urine Methadone Screen Ur Propoxyphene Screen Acetaminophen Ur Barbiturates Screen Ur Tricyclics Screen Ur Phencyclidine Scrn Ur Amphetamine Screen U Methamphetamines Scrn U Benzodiazepines Scrn Urine Cocaine Screen U Cannabinoids Screen Ethyl Alcohol PD Medical Decision Making - ED course Complexity details: reviewed old records, reviewed results, re-evaluated patient, considered differential, d/w patient, d/w documentation consultant ED course: Patient is a 22-year-old female who presents to the emergency department quite agitated and upset. Laboratory testing does not show any acute abnormalities. There is no rash on her legs, but there are excoriation gallardo. There is no sign of infection. No erythema. No streaking. Her urine drug screen is positive for cocaine, methamphetamine and cannabinoids. She has been positive for cocaine and cannabinoids in the past, but this is the first positive methamphetamine screen here. The patient became quite upset when she was told that her drug screen is positive. She states that she does not use drugs and that she is going to call the police and file a report because her boyfriend must be poisoning her. She states that she does not want the positive drug screen in her file. She requested to speak to a harbor department manager, she spoke with the charge nurse. Social work also consulted on the patient. The patient is staying at [facility]. The patient is not suicidal or homicidal. She did calm down after speaking with the health social work professor and states that she is taking her medication as prescribed. Her Zyprexa is being filled regularly. We will have her follow-up with her doctor for further care. No emergency medical condition at this time. Does not meet criteria for an involuntary hold. This document was made in part using voice recognition software. While efforts are made to proofread this document, sound alike and grammatical errors may occur. Departure - Departure Disposition: 01 Home, Self Care Clinical Impression: Polysubstance abuse, Excoriation, Bipolar 1 disorder Condition: Good Instructions: ED Drug Abuse General Follow-Up: Juliana Ramos ARNP [Primary Care Provider] - Within 1 week Comments: Your laboratory testing today does not show any acute abnormalities or evidence of liver disease. You are positive for cocaine, methamphetamines and marijuana. Please follow-up with your doctor for further care. Please return if you worsen. Crisis Line and is available to talk to someone [email or web address] is also available to chat with someone online if you prefer. There are also many resources on this website and apps for your phone to help with your mental health You can also text the word START to [phone] to chat with someome via text. Discharge Date/Time: 09/21/22 17:55
[2022-09-21 15:50] LABS: MUDS CUTOFF CONCENTRATIONS CUTOFF CONC BELOW:
[2022-09-21 15:58] LABS: BILIRUBIN,URINE NEGATIVE (NEGATIVE); GLUCOSE, URINE (UA) NEGATIVE (NEGATIVE); KETONES,URINE (UA) NEGATIVE (NEGATIVE); LEUKOCYTE ESTERASE, URINE TRACE (NEGATIVE); NITRITE,URINE NEGATIVE (NEGATIVE); OCCULT BLOOD,URINE LARGE (NEGATIVE); PROTEIN,URINE NEGATIVE (NEGATIVE); UROBILINOGEN,URINE 4 E.U./dL (NORMAL)
[2022-09-21 16:03] LABS: CLARITY,URINE HAZY (CLEAR); HCG UR QUAL NEGATIVE
[2022-09-21 16:05] LABS: BASOPHILS # (AUTO) 0.1 10^3/uL (0.0-0.1); BASOPHILS % (AUTO) 0.6 %; EOSINOPHILS # (AUTO) 0.2 10^3/uL (0.0-0.7); EOSINOPHILS % (AUTO) 2.7 %; HCT - HEMATOCRIT 36.7 % (37.0-47.0); LYMPHOCYTES % (AUTO) 24.8 %; MEAN CORPUSCULAR HEMOGLOBIN 28.9 pg (27.0-31.0); MEAN CORPUSCULAR HGB CONC 32.7 g/dL (32.0-36.0); MEAN CORPUSCULAR VOLUME 88.4 fL (81.0-99.0); MEAN PLATELET VOLUME 10.1 fL (7.9-10.8); MONOCYTES # (AUTO) 0.6 10^3/uL (0.0-1.0); MONOCYTES % (AUTO) 7.7 %; NEUTROPHILS # (AUTO) 5.2 10^3/uL (1.5-6.6); NEUTROPHILS % (AUTO) 64.1 %; PLT - PLATELET COUNT 317 10^3/uL (130-450); RED BLOOD COUNT 4.15 10^6/uL (4.20-5.40); RED CELL DISTRIBUTION WIDTH 13.8 % (12.0-15.0); WHITE BLOOD COUNT 8.2 x10^3/uL (4.8-10.8)
[2022-09-21 16:09] LABS: ACETAMINOPHEN < 10 ug/mL (10-30); ALBUMIN 4.3 g/dL (3.2-5.5); ALBUMIN/GLOBULIN RATIO 1.2 (1.0-2.2); ALKALINE PHOSPHATASE 41 IU/L (42-121); ALT ALANINE AMINOTRANSFERASE 32 IU/L (10-60); AST ASPARTATE AMINOTRANSFERASE 31 IU/L (10-42); BUN - BLOOD UREA NITROGEN 13 mg/dL (6-20); CALCIUM 8.8 mg/dL (8.5-10.3); CARBON DIOXIDE - CO2 28 mmol/L (21-32); CHLORIDE 97 mmol/L (101-111); CREATININE 0.8 mg/dL (0.4-1.0); ETOH - ETHANOL < 5.0 mg/dL; GFR - MDRD 107 (>89); GLUCOSE 82 mg/dL (70-100); LIPASE 40 U/L (22-51); POTASSIUM 3.5 mmol/L (3.5-5.0); SALICYLATE < 6.0 mg/dL; SODIUM 135 mmol/L (135-145)
[2022-09-21 16:16] LABS: BACTERIA,URINE Few /HPF (None Seen); RBC,URINE TNTC /HPF (0-5); SQUAMOUS EPITHELIAL CELL,UR FEW Squamous (<= Few); WBC,URINE 0-3 /HPF (0-5)
[2022-09-21 16:35] LABS: BENZODIAZEPINES SCREEN, URINE NEGATIVE (NEGATIVE); COCAINE SCREEN URINE POSITIVE (NEGATIVE); METHAMPHETAMINES SCREEN, URINE POSITIVE (NEGATIVE); THC CANNABINOID SCREEN, URINE POSITIVE (NEGATIVE)
[2022-09-21 16:36] LABS: AMPHETAMINE SCREEN,URINE POSITIVE (NEGATIVE); BARBITURATE SCREEN,UR NEGATIVE (NEGATIVE); METHADONE SCREEN, URINE NEGATIVE (NEGATIVE); OXYCODONE SCREEN, URINE NEGATIVE (NEGATIVE); PROPOXYPHENE SCREEN, URINE NEGATIVE (NEGATIVE); TRICYCLIC ANTIDEPRESSANT,URINE NEGATIVE (NEGATIVE)
[2022-09-21 17:29] LABS: B. PARAPERTUSSIS- RESP PCR PAN NOT DETECTED; B. PERTUSSIS- RESP PCR PANEL NOT DETECTED; C. PNEUMONIAE- RESP PCR PANEL NOT DETECTED; CORONAVIRUS 229E-RESP PCR NOT DETECTED; CORONAVIRUS HKU1-RESP PCR NOT DETECTED; CORONAVIRUS NL63-RESP PCR NOT DETECTED; CORONAVIRUS OC43-RESP PCR NOT DETECTED; HUMAN METAPNEUMOVIRUS NOT DETECTED; INFLUENZA A- RESP PCR PANEL NOT DETECTED; INFLUENZA B - RESP PCR PANEL NOT DETECTED; M. PNEUMONIAE- RESP PCR PANEL NOT DETECTED; PARAINFLUENZA VIRUS 1 NOT DETECTED; PARAINFLUENZA VIRUS 2 NOT DETECTED; PARAINFLUENZA VIRUS 3 NOT DETECTED; PARAINFLUENZA VIRUS 4 NOT DETECTED; RHINOVIRUS/ENTEROVIRUS NOT DETECTED; RSV- RESP PCR PANEL NOT DETECTED; SARS-CoV-2 -RESP PCR PANEL NOT DETECTED
[2022-09-21 17:55] VITALS: BP 148/100
[2022-09-21 23:34] LABS: CHLAMYDIA TRACHOMATIS DNA NEGATIVE (NEGATIVE); NEISSERIA GONORRHOEAE DNA NEGATIVE (NEGATIVE); TRICHOMONAS VAGINALIS DNA NEGATIVE (NEGATIVE)
== END 2022-09-21 17:55 | disposition home or self-care (01) ==
LOC: ED 14:40
DX: F31.89 Other bipolar disorder (principal); F19.10 Other psychoactive substance abuse, uncomplicated; T14.8XXA Other injury of unspecified body region, initial encounter; X58.XXXA Exposure to other specified factors, initial encounter; Z20.822 Contact with and (suspected) exposure to COVID-19
CPT/HCPCS: 36415; 80053; 80306; 80307; 81001; 81025; 83690; 84443; 85025; 87086; 87491; 87591; 87633; 87661; 99283; G0480; 80320; 80329; 81003

== ENCOUNTER 2024-01-02 17:00 | Emergency (ER) | payer MEDICAID, MEDICARE ==
[2024-01-02 17:24] VITALS: BP 133/80; O2SAT 98
[2024-01-02] MEDS ORDERED: OLANZapine ODT 5 MG TABLET TL STA (17:41)
--- NOTE | 2024-01-02 17:44 | ED Physician Documentation ---
PD HPI MHE - Stated complaint Stated Complaint: TREMORS - Chief complaint Chief Complaint: MHE - History obtained from History obtained from: Patient - Additional information Additional information: 23-year-old woman with schizoaffective disorder presents with family for the evaluation of tremors, hearing things, and wanting a refill of her medications. She said she been out of her medications quite some time as she does not know what pharmacy they went to. She denies SI or HI. Although she looks like she may be intoxicated on methamphetamine she denies use. She really wants just medication refill and to be discharged. 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 : None HEENT: None Psych: Depression, Anxiety, Bipolar disorder, Other Musculoskeletal: None Derm: None - Past Surgical History Past Surgical History: No - Present Medications Home Medications: Ambulatory Orders Medication Instructions Recorded Confirmed Duloxetine HCl [Cymbalta] 30 mg PO BID 04/26/22 09/21/22 OLANZapine [Zyprexa] 10 mg PO DAILY 04/26/22 09/21/22 OLANZapine [Zyprexa] 10 mg PO DAILY #30 tablet 01/02/24 - Allergies Allergies/Adverse Reactions: Allergies Allergy/AdvReac Type Severity Reaction Status Date / Time Sulfa (Sulfonamide Allergy "makes Verified 01/02/24 17:19 Antibiotics) bones hurt" amoxicillin AdvReac Nausea Verified 01/02/24 17:19 - Social History Does the pt smoke?: No Smoking Status: Never smoker Does the pt drink ETOH?: Yes Does the pt have substance abuse?: Yes - Immunizations Immunizations are current?: Yes - POLST Patient has POLST: No PD ED PE NORMAL - Vitals Vital signs reviewed: Yes - General General: Alert and oriented X 3, Other (Hypervigilance with frequent motions) - HEENT HEENT: PERRL, EOMI - Neck Neck: Supple, no meningeal sign, No bony TTP - Cardiac Cardiac: RRR, No murmur - Respiratory Respiratory: No respiratory distress, Clear bilaterally - Abdomen Abdomen: Non tender - Neuro Neuro: Alert and oriented X 3, Normal speech Eye Opening: Spontaneous Motor: Obeys Commands Verbal: Oriented GCS Score: 15 - Psych Psych: Normal mood, Normal affect Results - Vitals Vitals: Vital Signs - 24 hr 01/02/24 17:10 Temperature 36.2 C L Heart Rate 115 H Respiratory 18 Rate Blood Pressure 133/80 H O2 Saturation 98 Oxygen O2 Source Room air PD Medical Decision Making - ED course ED course: 23-year-old woman presents with medical noncompliance related to schizoaffective disorder with possible methamphetamine intoxication. She does not want medical workup nor treatment simply a refill of her Zyprexa. She is calm and cooperative so I do not see any indication for DCR evaluation against her wishes. Departure - Departure Disposition: 01 Home, Self Care Clinical Impression: Schizoaffective disorder Qualifiers: Schizoaffective disorder type: unspecified Qualified Code(s): F25.9 - Schizoaffective disorder, unspecified Condition: Stable Instructions: ED Schizo Affective Disorder Prescriptions: OLANZapine [Zyprexa] 10 mg PO DAILY #30 tablet Comments: You tell me you have not been using methamphetamines. I certainly hope this is true and discourage use if you have been. Drink plenty fluids and stay with a responsible family member. Return if worse. Follow-up with your psychiatrist, next available appointment. Forms: PCP List Discharge Date/Time: 01/02/24 17:54
== END 2024-01-02 17:54 | disposition home or self-care (01) ==
LOC: ED 17:00
DX: F25.9 Schizoaffective disorder, unspecified (principal); Z76.0 Encounter for issue of repeat prescription; I10 Essential (primary) hypertension
CPT/HCPCS: 80053; 80143; 80179; 82077; 82550; 83690; 83735; 84443; 85025; 99283

== ENCOUNTER 2024-01-20 10:34 | Outpatient (CLI) | payer SELFPAY | END 2024-01-20 23:59 | disposition EMS.NT | LOC: EMS 10:34 | DX: R45.1 Restlessness and agitation (principal); F41.9 Anxiety disorder, unspecified ==